=== PATIENT | male | born 1935 | race Caucasian/White ===

== ENCOUNTER → 2017-07-06 11:15 | Outpatient (CLI) | payer OTHER, SELFPAY ==
[2017-07-06 11:48] LABS: Add Manual Diff / Slide Review NO; Basophils Percent Auto 0.5 % (0-2); Eosinophils Percent Auto 1.5 % (2-4); Hematocrit 35.8 % (41-53); Lymphocytes Percent Auto 19.2 % (25-40); Mean Corpuscular HGB Conc 33.5 % (30-36); Mean Corpuscular Hemoglobin 30.1 PG (26-34); Mean Corpuscular Volume 89.8 fL (80-100); Monocytes Percent Auto 6.9 % (3-14); Neutrophils Absolute Auto 4800 /uL (3000-5900); Neutrophils Percent Auto 71.9 % (50-75); Platelet Count 203 X10^3/uL (150-400); Red Blood Cell Count 3.98 X10^6/uL (4.5-5.9); White Blood Cell Count 6.7 X10^3/uL (4.5-11.0)
[2017-07-06 12:01] LABS: Alanine Aminotransferase 23 IU/L (21-72); Albumin 3.9 g/dL (3.5-5.0); Albumin Globulin Ratio 1.3 (1.0-2.8); Alkaline Phosphatase 83 U/L (38-126); Aspartate Aminotransferase 28 IU/L (17-59); BUN Creatinine Ratio 22.5 (6-22); Bilirubin Total 0.8 mg/dL (0.2-1.3); Calcium 8.7 mg/dL (8.4-10.2); Estimated Glomerular Filt Rate > 60.0 mL/min (>60); Glucose 116 mg/dL (80-110); HEMOLYSIS 29 (0-50); Potassium 4.2 mmol/L (3.4-5.1); Sodium 142 mmol/L (137-145); Total Protein 6.9 g/dL (6.3-8.2)
[2017-07-06 12:49] LABS: Carcinoembryonic Antigen 8.4 ng/mL (0.1-3.0)
== END ==
PROVIDERS: PCP Internal Medicine; Visit Provider Nurse Practitioner Gerontology
DX: C7A.098 Malignant carcinoid tumors of other sites (principal)
CPT/HCPCS: 36415; 80053; 82378; 85025

== ENCOUNTER → 2017-08-06 12:00 | Outpatient (CLI) | payer OTHER, SELFPAY ==
[2017-08-11 16:02] LABS: Chromogranin A, Serum 173 ng/mL (25-140)
--- NOTE | 2017-08-19 13:28 | ONC.NAV ---
Description: T/C re: continuity of care planning Activity: Called pt to discuss our clinic's situation of not currently having an oncologist available in August that is credentialed by [facility]. REPAIR SUPERVISOR asked pt if he would like us to help transfer him to another of our NPO providers at [facility], go to [facility], or f/u with his own oncologist at [facility]. He stated that he just met with his oncologist 2-days ago, and that he doesn't need to see an oncologist here in August. He's ok with waiting until September to be scheduled with one of our new oncologists. In the meantime, he will plan to receive his injection here in August as planned.
== END ==
PROVIDERS: Family Provider Internal Medicine; PCP Internal Medicine; Visit Provider Nurse Practitioner Gerontology
DX: C7A.098 Malignant carcinoid tumors of other sites (principal)
CPT/HCPCS: 86316

== ENCOUNTER → 2017-10-22 09:37 | Outpatient (CLI) | payer OTHER, SELFPAY ==
--- NOTE | 2017-10-22 | DI.ECHO.S_ITS ---
[facility]---------+ [facility] +---------+ : : [address] : [place] : : : : [id number] : : : : Phone: [phone]+ Echocardiogram Report + + :Name: STAN HUMPHRIES Study Date: 10/22/2017 Height: 73 in : :[facility] Exam Location: [place] Weight: 145 lb : : Gender: Male BSA: 1.9 m2 : :: 1935 Age: 82 yrs BP: 118/78 mmHg: :Reason For Study: ABDOMINAL CARCINOID TUMOR : : Performed By: Kb Yan : :Referring: BLAYNE LEGER : + + Interpretation Summary Left ventricular systolic function is low normal with the ejection fraction visually estimated to be 50-55%. There are no focal wall motion abnormalities. The left ventricle is normal in size. Assessment of diastolic parameters indicates a relaxation abnormality of the left ventricle, consistent with normal filling pressures. The right ventricle is normal in size and function. Pulmonary artery pressures cannot be estimated because of the lack of a measurable TR jet velocity but the IVC suggests a low right atrial pressure of 3 mm Hg. Both atria are normal in size. There is mild mitral regurgitation but no other significant valvular heart disease. Procedure: A two-dimensional transthoracic echocardiogram with color flow and Doppler was performed. The study quality was technically difficult. There is no prior echocardiogram noted for this patient. The patient was in normal sinus rhythm during the exam. The patient had occasional PVCs during the exam. The patient had occasional PACs during the exam. Left Ventricle: The left ventricle is normal in size. There is normal left ventricular wall thickness. Left ventricular systolic function is low normal. The ejection fraction is estimated to be 50-55%. There are no focal wall motion abnormalities. Assessment of diastolic parameters indicates a relaxation abnormality of the left ventricle, consistent with normal filling pressures. Right Ventricle: The right ventricle is normal in size and function. Atria: Both atria are normal in size. The interatrial septum is intact with no evidence for an atrial septal defect. Mitral Valve: The mitral valve leaflets appear normal. There is no evidence of stenosis, fluttering, or prolapse. There is mild mitral regurgitation. Aortic Valve: The aortic valve is trileaflet. The aortic valve is slightly calcified. The aortic valve opens well. There is trace aortic regurgitation. Tricuspid Valve: The tricuspid valve is normal in structure and function. There is trace tricuspid regurgitation. Pulmonary artery pressures cannot be estimated because of the lack of a measurable TR jet velocity. Pulmonic Valve: The pulmonic valve is normal in structure and function. There is trace pulmonic regurgitation. There is no other significant valvular heart disease. Great Vessels: The aortic root is normal size. The ascending aorta could not be visualized. The pulmonary artery is normal size. The IVC is of normal diameter and collapses greater than 50% with a sniff. This suggests a low right atrial pressure of 3 mm Hg. Pericardium/ Pleura There is no pericardial effusion. There is no pleural effusion. MMode/2D Measurements & Calculations LVIDd: 4.2 cm Ao root diam: 3.5 cm LVIDs: 3.4 cm Ao Arch Diam (Prox Trans): 2.5 cm FS: 18.7 % EPSS: 0.35 cm IVSd: 0.60 cm LVPWd: 0.77 cm LV cameron. diameter/BSA (cm/m^2): 2.2 LV sys. diameter/BSA (cm/m^2): 1.8 LA dimension: 2.6 cm RA long axis: 4.4 cm LA A2 area: 16.1 cm2 RA area: 13.0 cm2 LA A4 area: 13.0 cm2 RA vol: 32.5 ml LA length (vol): 4.0 cm RA : 17.3 ml/m2 LA vol: 44.1 ml IVC diam: 1.9 cm LA vol index: 23.5 ml/m2 Doppler Measurements & Calculations Ao V2 max: 75.9 cm/sec LVOT Max Eric: 61.3 cm/sec Ao V2 mean: 55.2 cm/sec LV V1 max P.5 mmHg Ao max P.3 mmHg LV V1 VTI: 14.1 cm Ao mean P.3 mmHg sev ratio: 0.82 Ao V2 VTI: 17.2 cm MV E max eric: 49.3 cm/sec TR max eric: 199.0 cm/sec MV A max eric: 59.9 cm/sec TR max P.8 mmHg MV E/A: 0.82 PA V2 max: 60.5 cm/sec Med Peak E' Eric: 7.4 cm/sec PA V2 mean: 45.1 cm/sec E/E' med: 6.6 PA mean P.88 mmHg Lat Peak E' Eric: 11.7 cm/sec PA pr(Accel): 25.8 mmHg E/E' lat: 4.2 PA Accel Time: 0.13 sec E/e' average: 5.4 MV dec time: 0.23 sec Pulm A Revs Eric: 23.2 cm/sec Reading Physician:JOSÉ ANTONIO
== END ==
PROVIDERS: Family Provider Internal Medicine; PCP Internal Medicine; Visit Provider Nurse Practitioner Gerontology
DX: I34.0 Nonrheumatic mitral (valve) insufficiency (principal); C7A.098 Malignant carcinoid tumors of other sites
CPT/HCPCS: 93306

== ENCOUNTER → 2018-01-11 10:00 | Outpatient (CLI) | payer OTHER, SELFPAY | PROVIDERS: Family Provider Internal Medicine; PCP Internal Medicine; Visit Provider Internal Medicine | DX: M85.851 Other specified disorders of bone density and structure, right thigh (principal); E46 Unspecified protein-calorie malnutrition; Z82.62 Family history of osteoporosis | CPT/HCPCS: 77080 ==

== ENCOUNTER → 2019-02-08 13:12 | Outpatient (CLI) | payer OTHER, SELFPAY ==
[2019-02-08 13:47] LABS: Add Manual Diff / Slide Review NO; Basophils Absolute Auto 0 /uL (0-100); Basophils Percent Auto 0.6 % (0-2); Eosinophils Absolute Auto 200 /uL (0-450); Eosinophils Percent Auto 3.4 % (2-4); Hematocrit 36.1 % (41-53); Hemoglobin 12.3 g/dL (13.5-17.5); Lymphocytes Absolute Auto 1500 /uL (1100-4500); Lymphocytes Percent Auto 20.9 % (25-40); Mean Corpuscular HGB Conc 34.1 % (30-36); Mean Corpuscular Hemoglobin 30.5 PG (26-34); Mean Corpuscular Volume 89.4 fL (80-100); Monocytes Absolute Auto 500 /uL (0-900); Monocytes Percent Auto 6.5 % (3-14); Neutrophils Absolute Auto 4800 /uL (1500-7000); Neutrophils Percent Auto 68.6 % (50-75); Platelet Count 262 X10^3/uL (150-400); Red Blood Cell Count 4.04 X10^6/uL (4.5-5.9); Red Cell Distribution Width 13.4 % (11.6-14.8)
[2019-02-08 14:01] LABS: Alanine Aminotransferase 27 IU/L (<50); Albumin 4.3 g/dL (3.5-5.0); Albumin Globulin Ratio 1.4 (1.0-2.8); Alkaline Phosphatase 86 U/L (38-126); Aspartate Aminotransferase 38 IU/L (17-59); BUN Creatinine Ratio 18.5 (6-22); Bilirubin Total 0.7 mg/dL (0.2-1.3); Blood Urea Nitrogen 24 mg/dL (9-20); Calcium 9.2 mg/dL (8.4-10.2); Carbon Dioxide 28 mmol/L (22-32); Chloride 102 mmol/L (98-107); Estimated Glomerular Filt Rate 52.9 mL/min (>60); Glucose 89 mg/dL (80-110); HEMOLYSIS < 15 (0-50); Potassium 4.8 mmol/L (3.4-5.1); Sodium 139 mmol/L (137-145); Total Protein 7.3 g/dL (6.3-8.2)
[2019-02-08 14:32] LABS: Carcinoembryonic Antigen 6.4 ng/mL (0.1-3.0)
[2019-02-11 16:05] LABS: Cancer (Carbohydrate) Ag 19-9 18 U/mL (< 34)
[2019-02-11 16:34] LABS: Chromogranin A, Serum 170 ng/mL (25-140)
== END ==
PROVIDERS: PCP Internal Medicine
DX: C7A.098 Malignant carcinoid tumors of other sites (principal)
CPT/HCPCS: 36415; 80053; 82378; 85025; 86301; 86316

== ENCOUNTER → 2019-03-08 13:04 | Outpatient (CLI) | payer OTHER, SELFPAY ==
[2019-03-08 13:57] LABS: Add Manual Diff / Slide Review NO; Basophils Absolute Auto 0 /uL (0-100); Basophils Percent Auto 0.5 % (0-2); Eosinophils Absolute Auto 200 /uL (0-450); Eosinophils Percent Auto 2.7 % (2-4); Hematocrit 39.9 % (41-53); Hemoglobin 13.4 g/dL (13.5-17.5); Lymphocytes Absolute Auto 1600 /uL (1100-4500); Lymphocytes Percent Auto 19.6 % (25-40); Mean Corpuscular HGB Conc 33.6 % (30-36); Mean Corpuscular Hemoglobin 30.3 PG (26-34); Mean Corpuscular Volume 90.1 fL (80-100); Monocytes Absolute Auto 400 /uL (0-900); Monocytes Percent Auto 5.1 % (3-14); Neutrophils Absolute Auto 5900 /uL (1500-7000); Neutrophils Percent Auto 72.1 % (50-75); Platelet Count 244 X10^3/uL (150-400); Red Blood Cell Count 4.43 X10^6/uL (4.5-5.9); Red Cell Distribution Width 13.6 % (11.6-14.8); White Blood Cell Count 8.2 X10^3/uL (4.5-11.0)
[2019-03-08 13:58] LABS: Alanine Aminotransferase 33 IU/L (<50); Albumin 4.8 g/dL (3.5-5.0); Albumin Globulin Ratio 1.5 (1.0-2.8); Alkaline Phosphatase 92 U/L (38-126); Aspartate Aminotransferase 41 IU/L (17-59); BUN Creatinine Ratio 18.3 (6-22); Bilirubin Total 0.7 mg/dL (0.2-1.3); Blood Urea Nitrogen 22 mg/dL (9-20); Calcium 9.6 mg/dL (8.4-10.2); Carbon Dioxide 28 mmol/L (22-32); Chloride 102 mmol/L (98-107); Globulin 3.2 g/dL (1.7-4.1); Glucose 90 mg/dL (80-110); HEMOLYSIS < 15 (0-50); Potassium 4.6 mmol/L (3.4-5.1); Sodium 140 mmol/L (137-145)
[2019-03-08 14:28] LABS: Carcinoembryonic Antigen 7.1 ng/mL (0.1-3.0)
[2019-03-10 17:07] LABS: Cancer (Carbohydrate) Ag 19-9 19 U/mL (< 34)
[2019-03-11 13:59] LABS: Chromogranin A, Serum 162 ng/mL (25-140)
== END ==
PROVIDERS: PCP Internal Medicine
DX: C7A.098 Malignant carcinoid tumors of other sites (principal)
CPT/HCPCS: 36415; 80053; 82378; 85025; 86301; 86316

== ENCOUNTER → 2019-04-06 12:54 | Outpatient (CLI) | payer OTHER, SELFPAY ==
[2019-04-06 13:19] LABS: Add Manual Diff / Slide Review NO; Basophils Absolute Auto 0 /uL (0-100); Basophils Percent Auto 0.6 % (0-2); Eosinophils Absolute Auto 100 /uL (0-450); Eosinophils Percent Auto 1.8 % (2-4); Hematocrit 36.8 % (41-53); Hemoglobin 12.4 g/dL (13.5-17.5); Lymphocytes Absolute Auto 1500 /uL (1100-4500); Lymphocytes Percent Auto 21.5 % (25-40); Mean Corpuscular HGB Conc 33.7 % (30-36); Mean Corpuscular Hemoglobin 30.4 PG (26-34); Mean Corpuscular Volume 90.1 fL (80-100); Monocytes Absolute Auto 300 /uL (0-900); Monocytes Percent Auto 4.9 % (3-14); Neutrophils Absolute Auto 4900 /uL (1500-7000); Neutrophils Percent Auto 71.2 % (50-75); Platelet Count 308 X10^3/uL (150-400); Red Blood Cell Count 4.09 X10^6/uL (4.5-5.9); Red Cell Distribution Width 13.9 % (11.6-14.8); White Blood Cell Count 6.9 X10^3/uL (4.5-11.0)
[2019-04-06 13:31] LABS: HEMOLYSIS < 15 (0-50)
[2019-04-06 13:39] LABS: Alanine Aminotransferase 21 IU/L (<50); Albumin 4.2 g/dL (3.5-5.0); Albumin Globulin Ratio 1.3 (1.0-2.8); Alkaline Phosphatase 79 U/L (38-126); Aspartate Aminotransferase 32 IU/L (17-59); BUN Creatinine Ratio 23.6 (6-22); Bilirubin Total 0.4 mg/dL (0.2-1.3); Blood Urea Nitrogen 26 mg/dL (9-20); Calcium 9.1 mg/dL (8.4-10.2); Carbon Dioxide 27 mmol/L (22-32); Chloride 105 mmol/L (98-107); Estimated Glomerular Filt Rate > 60.0 mL/min (>60); Globulin 3.3 g/dL (1.7-4.1); Glucose 108 mg/dL (80-110); Potassium 4.4 mmol/L (3.4-5.1); Sodium 142 mmol/L (137-145); Total Protein 7.5 g/dL (6.3-8.2)
[2019-04-06 16:34] LABS: Carcinoembryonic Antigen 4.5 ng/mL (0.1-3.0)
[2019-04-08 15:17] LABS: Cancer (Carbohydrate) Ag 19-9 21 U/mL (< 34)
[2019-04-11 17:24] LABS: Chromogranin A, Serum 124 ng/mL (25-140)
== END ==
PROVIDERS: PCP Internal Medicine; Referring Provider Internal Medicine Hematology & Oncology; Visit Provider Internal Medicine Hematology & Oncology
DX: C7A.098 Malignant carcinoid tumors of other sites (principal)
CPT/HCPCS: 36415; 80053; 82378; 85025; 86301; 86316

== ENCOUNTER → 2019-05-31 12:44 | Outpatient (CLI) | payer OTHER, SELFPAY ==
[2019-05-31 13:01] LABS: Add Manual Diff / Slide Review NO; Basophils Absolute Auto 0 /uL (0-100); Basophils Percent Auto 0.4 % (0-2); Eosinophils Absolute Auto 300 /uL (0-450); Hematocrit 39.4 % (41-53); Hemoglobin 13.5 g/dL (13.5-17.5); Lymphocytes Absolute Auto 1500 /uL (1100-4500); Lymphocytes Percent Auto 17.9 % (25-40); Mean Corpuscular HGB Conc 34.3 % (30-36); Mean Corpuscular Hemoglobin 30.9 PG (26-34); Mean Corpuscular Volume 90.2 fL (80-100); Monocytes Absolute Auto 600 /uL (0-900); Monocytes Percent Auto 7.1 % (3-14); Neutrophils Absolute Auto 5800 /uL (1500-7000); Neutrophils Percent Auto 70.6 % (50-75); Platelet Count 255 X10^3/uL (150-400); Red Blood Cell Count 4.36 X10^6/uL (4.5-5.9); Red Cell Distribution Width 13.8 % (11.6-14.8); White Blood Cell Count 8.2 X10^3/uL (4.5-11.0)
[2019-05-31 13:16] LABS: Alanine Aminotransferase 28 IU/L (<50); Albumin 4.5 g/dL (3.5-5.0); Albumin Globulin Ratio 1.3 (1.0-2.8); Alkaline Phosphatase 88 U/L (38-126); Aspartate Aminotransferase 42 IU/L (17-59); BUN Creatinine Ratio 18.3 (6-22); Bilirubin Total 0.6 mg/dL (0.2-1.3); Blood Urea Nitrogen 23 mg/dL (9-20); Calcium 9.7 mg/dL (8.4-10.2); Carbon Dioxide 29 mmol/L (22-32); Chloride 103 mmol/L (98-107); Estimated Glomerular Filt Rate 54.8 mL/min (>60); Globulin 3.5 g/dL (1.7-4.1); Glucose 77 mg/dL (80-110); HEMOLYSIS < 15 (0-50); Potassium 4.9 mmol/L (3.4-5.1); Sodium 139 mmol/L (137-145)
[2019-05-31 13:47] LABS: Carcinoembryonic Antigen 4.9 ng/mL (0.1-3.0)
[2019-06-01 07:17] LABS: Cancer (Carbohydrate) Ag 19-9 17 U/mL (0-35)
[2019-06-12 12:14] LABS: Result 194
== END ==
PROVIDERS: PCP Internal Medicine; Referring Provider Internal Medicine Hematology & Oncology; Visit Provider Internal Medicine Hematology & Oncology
DX: C7A.098 Malignant carcinoid tumors of other sites (principal)
CPT/HCPCS: 36415; 80053; 82378; 85025; 86301; 86316

== ENCOUNTER → 2019-06-29 12:16 | Outpatient (CLI) | payer OTHER, SELFPAY ==
[2019-06-29 12:36] LABS: Add Manual Diff / Slide Review NO; Basophils Absolute Auto 0 /uL (0-100); Basophils Percent Auto 0.4 % (0-2); Eosinophils Absolute Auto 200 /uL (0-450); Hematocrit 35.7 % (41-53); Hemoglobin 12.4 g/dL (13.5-17.5); Lymphocytes Absolute Auto 1500 /uL (1100-4500); Lymphocytes Percent Auto 20.7 % (25-40); Mean Corpuscular HGB Conc 34.7 % (30-36); Mean Corpuscular Hemoglobin 31.1 PG (26-34); Mean Corpuscular Volume 89.8 fL (80-100); Monocytes Absolute Auto 500 /uL (0-900); Monocytes Percent Auto 6.4 % (3-14); Neutrophils Absolute Auto 5000 /uL (1500-7000); Neutrophils Percent Auto 69.5 % (50-75); Platelet Count 251 X10^3/uL (150-400); Red Blood Cell Count 3.98 X10^6/uL (4.5-5.9); Red Cell Distribution Width 13.8 % (11.6-14.8); White Blood Cell Count 7.2 X10^3/uL (4.5-11.0)
[2019-06-29 12:48] LABS: Alanine Aminotransferase 25 IU/L (<50); Albumin 4.2 g/dL (3.5-5.0); Albumin Globulin Ratio 1.3 (1.0-2.8); Alkaline Phosphatase 78 U/L (38-126); Aspartate Aminotransferase 36 IU/L (17-59); BUN Creatinine Ratio 19.5 (6-22); Bilirubin Total 0.5 mg/dL (0.2-1.3); Blood Urea Nitrogen 24 mg/dL (9-20); Carbon Dioxide 26 mmol/L (22-32); Chloride 104 mmol/L (98-107); Estimated Glomerular Filt Rate 56.3 mL/min (>60); Globulin 3.3 g/dL (1.7-4.1); Glucose 72 mg/dL (80-110); HEMOLYSIS < 15 (0-50); Potassium 4.8 mmol/L (3.4-5.1); Sodium 139 mmol/L (137-145); Total Protein 7.5 g/dL (6.3-8.2)
[2019-06-29 13:18] LABS: Carcinoembryonic Antigen 4.5 ng/mL (0.1-3.0)
[2019-06-30 06:27] LABS: Cancer (Carbohydrate) Ag 19-9 16 U/mL (0-35)
[2019-07-03 13:48] LABS: Chromogranin A, Serum 108.9 ng/mL (0.0-101.8)
== END ==
PROVIDERS: PCP Internal Medicine; Referring Provider Internal Medicine Hematology & Oncology; Visit Provider Internal Medicine Hematology & Oncology
DX: C7A.098 Malignant carcinoid tumors of other sites (principal)
CPT/HCPCS: 36415; 80053; 82378; 85025; 86301; 86316

== ENCOUNTER → 2019-12-07 13:07 | Outpatient (CLI) | payer OTHER, SELFPAY ==
[2019-12-07 14:19] LABS: Add Manual Diff / Slide Review NO; Basophils Absolute Auto 0 /uL (0-100); Basophils Percent Auto 0.4 % (0-2); Eosinophils Absolute Auto 100 /uL (0-450); Eosinophils Percent Auto 1.9 % (2-4); Hematocrit 38.1 % (41-53); Hemoglobin 12.8 g/dL (13.5-17.5); Lymphocytes Absolute Auto 1400 /uL (1100-4500); Lymphocytes Percent Auto 18.9 % (25-40); Mean Corpuscular HGB Conc 33.6 % (30-36); Mean Corpuscular Hemoglobin 30.6 PG (26-34); Monocytes Absolute Auto 400 /uL (0-900); Monocytes Percent Auto 5.4 % (3-14); Neutrophils Absolute Auto 5500 /uL (1500-7000); Neutrophils Percent Auto 73.4 % (50-75); Platelet Count 236 X10^3/uL (150-400); Red Blood Cell Count 4.19 X10^6/uL (4.5-5.9); Red Cell Distribution Width 13.6 % (11.6-14.8); White Blood Cell Count 7.5 X10^3/uL (4.5-11.0)
[2019-12-07 14:32] LABS: Alanine Aminotransferase 30 IU/L (<50); Albumin 4.2 g/dL (3.5-5.0); Albumin Globulin Ratio 1.6 (1.0-2.8); Alkaline Phosphatase 98 U/L (38-126); Aspartate Aminotransferase 36 IU/L (17-59); BUN Creatinine Ratio 19.2 (6-22); Bilirubin Total 0.6 mg/dL (0.2-1.3); Blood Urea Nitrogen 23 mg/dL (9-20); Calcium 9.2 mg/dL (8.4-10.2); Carbon Dioxide 31 mmol/L (22-32); Chloride 104 mmol/L (98-107); Estimated Glomerular Filt Rate 57.8 mL/min (>60); Globulin 2.7 g/dL (1.7-4.1); Glucose 133 mg/dL (80-110); HEMOLYSIS < 15 (0-50); Sodium 138 mmol/L (137-145); Total Protein 6.9 g/dL (6.3-8.2)
[2019-12-07 14:33] LABS: Potassium 5.5 mmol/L (3.4-5.1)
== END ==
PROVIDERS: PCP Internal Medicine; Referring Provider Internal Medicine Hematology & Oncology; Visit Provider Internal Medicine Hematology & Oncology
DX: C7A.098 Malignant carcinoid tumors of other sites (principal)
CPT/HCPCS: 36415; 80053; 85025; 86316

== ENCOUNTER → 2020-01-03 13:14 | Outpatient (CLI) | payer OTHER, SELFPAY ==
[2020-01-03 13:56] LABS: Add Manual Diff / Slide Review NO; Basophils Absolute Auto 0 /uL (0-100); Basophils Percent Auto 0.6 % (0-2); Eosinophils Absolute Auto 100 /uL (0-450); Hematocrit 35.9 % (41-53); Hemoglobin 12.1 g/dL (13.5-17.5); Lymphocytes Absolute Auto 1600 /uL (1100-4500); Lymphocytes Percent Auto 21.9 % (25-40); Mean Corpuscular HGB Conc 33.7 % (30-36); Mean Corpuscular Hemoglobin 30.6 PG (26-34); Mean Corpuscular Volume 91.1 fL (80-100); Monocytes Absolute Auto 300 /uL (0-900); Monocytes Percent Auto 4.5 % (3-14); Neutrophils Absolute Auto 5200 /uL (1500-7000); Platelet Count 220 X10^3/uL (150-400); Red Blood Cell Count 3.94 X10^6/uL (4.5-5.9); Red Cell Distribution Width 13.8 % (11.6-14.8); White Blood Cell Count 7.3 X10^3/uL (4.5-11.0)
[2020-01-03 14:45] LABS: Alanine Aminotransferase 31 IU/L (<50); Albumin 4.1 g/dL (3.5-5.0); Albumin Globulin Ratio 1.4 (1.0-2.8); Alkaline Phosphatase 87 U/L (38-126); Aspartate Aminotransferase 39 IU/L (17-59); BUN Creatinine Ratio 19.2 (6-22); Bilirubin Total 0.6 mg/dL (0.2-1.3); Blood Urea Nitrogen 25 mg/dL (9-20); Calcium 8.9 mg/dL (8.4-10.2); Carbon Dioxide 29 mmol/L (22-32); Chloride 105 mmol/L (98-107); Estimated Glomerular Filt Rate 52.7 mL/min (>60); Globulin 2.9 g/dL (1.7-4.1); Glucose 116 mg/dL (80-110); HEMOLYSIS < 15 (0-50); Potassium 4.8 mmol/L (3.4-5.1); Sodium 137 mmol/L (137-145)
[2020-01-05 12:36] LABS: Chromogranin A, Serum 109.9 ng/mL (0.0-101.8)
== END ==
PROVIDERS: PCP Internal Medicine; Referring Provider Internal Medicine Hematology & Oncology; Visit Provider Internal Medicine Hematology & Oncology
DX: C7A.098 Malignant carcinoid tumors of other sites (principal)
CPT/HCPCS: 36415; 80053; 85025; 86316

== ENCOUNTER → 2020-07-18 11:50 | Outpatient (CLI) | payer OTHER, SELFPAY ==
--- NOTE | 2020-07-18 11:53 | DI.CT.S_ITS ---
PROCEDURE: CT CHEST W CON INDICATIONS: Malignant Carcinoid Tumor TECHNIQUE: After the administration of intravenous contrast, 5 mm thick sections acquired from the pulmonary apices to the posterior costophrenic angles. 1 mm axial lung, 5 mm thick coronal and sagittal reformats and 7 mm axial MIP were acquired. For radiation dose reduction, the following was used: automated exposure control, adjustment of mA and/or kV according to patient size. COMPARISON: [facility], CT, CHEST/ABD/PEL WITH CONTRAST, 11/02/2016, 12:03. Outside Facility, RG, CT PET SKULL BASE TO MID THIGH, 02/01/2020, 8:36. FINDINGS: Image quality: Excellent. Lungs and pleura: No acute air space opacities. No pleural effusions or pneumothorax. Central and peripheral airways are patent and normal in caliber. Mediastinum: Heart size is normal. No pericardial effusion. No mediastinal or hilar adenopathy by size criteria. Thoracic aorta and central pulmonary arteries are normal in size. Esophagus is normal in caliber. No hiatal hernia. Bones and chest wall: No suspicious bony lesions. No vertebral body compression fractures. No axillary or supraclavicular adenopathy by size criteria. Thyroid gland contains several 1.0-1.5 cm nodular hypodensities that do not significantly enlarged the right thyroid lobe. Abdomen: Visualized upper abdominal solid organs appear normal. Upper abdominal bowel loops are normal in caliber. IMPRESSION: No evidence for presence of metastatic disease related to carcinoid tumor from the abdomen extending into the chest. The most recent PET-CT scanning, from [facility], dated 02/01/20 was reviewed. That study also did not show evidence of metastatic disease within the chest. There are 3 separate nodules within the right thyroid lobe ranging in size from 1.0 to 1.5 cm. The exact margins of the structures would be better assessed with dedicated thyroid ultrasound scanning if clinically warranted. Similar nodules within the right thyroid lobe were also present on prior CT scanning 11/02/16. Dictated by: Rod Montes M.D. on 07/18/2020 at 15:12 Approved by: Rod Montes M.D. on 07/18/2020 at 15:35
--- NOTE | 2020-07-18 11:53 | DI.CT.S_ITS ---
PROCEDURE: CT ABDOMEN WWO PELVIS W INDICATIONS: hepatic protocol. Metestatic neuroendocrine tumor TECHNIQUE: After the administration of oral contrast, 5 mm thick sections acquired from the diaphragms to the iliac crests. After the administration of intravenous contrast, 5 mm thick sections acquired from the diaphragms to the symphysis. 5 mm thick coronal and sagittal reformats were acquired. For radiation dose reduction, the following was used: automated exposure control, adjustment of mA and/or kV according to patient size. COMPARISON: Outside Facility, RG, CT PET SKULL BASE TO MID THIGH, 02/01/2020, 8:36. FINDINGS: Image quality: Excellent. ABDOMEN: Lung bases: Lung bases are clear. Heart size is normal. Solid organs: Liver is normal in size and enhancement. The liver appears fatty infiltrated. No focal liver lesion Gallbladder is not seen . Biliary system is non-dilated. Pancreas enhances normally. Spleen is normal in size and enhancement. No adrenal nodules. Both kidneys are normal in size. No hydronephrosis or nephrolithiasis. Bowel and peritoneum: Stomach, small and large bowel loops are normal in caliber and wall thickness. No free fluid or air. Again noted is a ovoid mass lesion within the mesenteric root closely approximated to a set of enteric staple lines at the right upper quadrant. The mass is centered on series 7, image 35 and is hyperenhancing. It has not enlarged from the PET-CT scanning 02/01/20 and currently is measured at 2 point 3 cm AP and 3.2 cm transverse. This is associated with the staple line seen on series 7, image 28.m Nodes and vessels: No retroperitoneal or mesenteric adenopathy by size criteria. Aorta and inferior vena are normal in caliber. Miscellaneous: No ventral hernias. PELVIS: Genitourinary: Bladder wall thickness is normal. Miscellaneous: No inguinal hernias or adenopathy. Bones: No suspicious bony lesions. No vertebral body compression fractures. IMPRESSION: Stable appearance of a mesenteric mass associated with a adjacent enteric staple line at the right upper quadrant, which has not changed from size during PET-CT scanning in January of 2020. No new lesion has developed. Fatty infiltration within the liver. 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 Dictated by: Rod Montes M.D. on 07/19/2020 at 8:58 Approved by: Rod Montes M.D. on 07/19/2020 at 9:40
[2020-07-18 12:04] LABS: Add Manual Diff / Slide Review NO; Basophils Absolute Auto 0 /uL (0-100); Basophils Percent Auto 0.4 % (0-2); Eosinophils Absolute Auto 200 /uL (0-450); Eosinophils Percent Auto 2.5 % (2-4); Hematocrit 37.5 % (41-53); Hemoglobin 12.6 g/dL (13.5-17.5); Lymphocytes Absolute Auto 1900 /uL (1100-4500); Lymphocytes Percent Auto 23.6 % (25-40); Mean Corpuscular HGB Conc 33.7 % (30-36); Mean Corpuscular Hemoglobin 31.1 PG (26-34); Mean Corpuscular Volume 92.4 fL (80-100); Monocytes Absolute Auto 600 /uL (0-900); Monocytes Percent Auto 7.5 % (3-14); Neutrophils Absolute Auto 5200 /uL (1500-7000); Platelet Count 208 X10^3/uL (150-400); Red Blood Cell Count 4.06 X10^6/uL (4.5-5.9); Red Cell Distribution Width 13.6 % (11.6-14.8); White Blood Cell Count 7.9 X10^3/uL (4.5-11.0)
[2020-07-18 12:22] LABS: Alanine Aminotransferase 33 IU/L (<50); Albumin 4.2 g/dL (3.5-5.0); Albumin Globulin Ratio 1.4 (1.0-2.8); Alkaline Phosphatase 96 U/L (38-126); Aspartate Aminotransferase 41 IU/L (17-59); BUN Creatinine Ratio 18.5 (6-22); Bilirubin Total 0.9 mg/dL (0.2-1.3); Blood Urea Nitrogen 22 mg/dL (9-20); Calcium 9.5 mg/dL (8.4-10.2); Carbon Dioxide 26 mmol/L (22-32); Chloride 103 mmol/L (98-107); Estimated Glomerular Filt Rate 58.4 mL/min (>60); Glucose 100 mg/dL (80-110); HEMOLYSIS < 15 (0-50); Potassium 4.9 mmol/L (3.4-5.1); Sodium 137 mmol/L (137-145); Total Protein 7.2 g/dL (6.3-8.2)
[2020-07-24 14:58] LABS: Chromogranin A, Serum 134.3 ng/mL (0.0-101.8)
== END ==
PROVIDERS: PCP Internal Medicine; Referring Provider Internal Medicine Hematology & Oncology; Visit Provider Internal Medicine Hematology & Oncology
DX: C7A.098 Malignant carcinoid tumors of other sites (principal)
CPT/HCPCS: 36415; 71260; 74178; 80053; 85025; 86316; Q9967

== ENCOUNTER → 2021-03-13 13:33 | Outpatient (CLI) | payer OTHER, SELFPAY ==
--- NOTE | 2021-03-13 13:34 | DI.CT.S_ITS ---
PROCEDURE: CT ABDOMEN WWO PELVIS W INDICATIONS: neuroendocrine tumor TECHNIQUE: After the administration of oral contrast, 5 mm thick sections acquired from the diaphragms to the iliac crests. After the administration of intravenous contrast, 5 mm thick sections acquired from the diaphragms to the symphysis. 5 mm thick coronal and sagittal reformats were acquired. For radiation dose reduction, the following was used: automated exposure control, adjustment of mA and/or kV according to patient size. COMPARISON: [facility], CT, CT ABDOMEN WWO PELVIS W, 07/18/2020, 12:58. FINDINGS: Image quality: Excellent. ABDOMEN: Lung bases: Lung bases are clear. Heart size is normal. Solid organs: Liver is normal in size and enhancement. Gallbladder is surgically absent . Biliary system is non-dilated. Biliary air is noted, as before. Pancreas enhances normally. Spleen is normal in size and enhancement. No adrenal nodules. Both kidneys are normal in size. No hydronephrosis or nephrolithiasis. Bowel and peritoneum: Extensive sigmoid diverticulosis without evidence of diverticulitis. No free fluid or air. Stable size of enhancing mass in the mesenteric root closely approximated to a right upper quadrant staple line. On previous image 36/10 it measured 2.9 x 3.2 cm. On current image 42/5 it measures 2.7 x 3.4 cm. No new or increasing masses are noted. Nodes and vessels: No retroperitoneal or mesenteric adenopathy by size criteria. Aorta and inferior vena are normal in caliber. Small pancreatic uncinate process region varicosities, unchanged. Miscellaneous: No ventral hernias. PELVIS: Genitourinary: Bladder wall thickness is normal. At least moderately enlarged prostate. Miscellaneous: No inguinal hernias or adenopathy. Bones: Lumbar degenerative change. No lytic or blastic bony lesions. No compression fractures. IMPRESSION: 1. 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 2. Diffuse hepatic steatosis. 3. No evidence of progression of malignancy in the abdomen and pelvis. Dictated by: Star Culp M.D. on 03/14/2021 at 8:06 Approved by: Star Culp M.D. on 03/14/2021 at 8:15
== END ==
PROVIDERS: PCP Internal Medicine; Referring Provider Internal Medicine Hematology & Oncology; Visit Provider Internal Medicine Hematology & Oncology
DX: C7A.098 Malignant carcinoid tumors of other sites (principal); K57.30 Diverticulosis of large intestine without perforation or abscess without bleeding; K76.0 Fatty (change of) liver, not elsewhere classified; Z90.49 Acquired absence of other specified parts of digestive tract
CPT/HCPCS: 74178; Q9967

== ENCOUNTER → 2022-01-09 10:07 | Outpatient (CLI) | payer OTHER, SELFPAY ==
--- NOTE | 2022-01-09 10:08 | DI.CT.S_ITS ---
PROCEDURE: CT CHEST ABD PEL W CON INDICATIONS: carcinoid tumor TECHNIQUE: After the administration of oral and intravenous contrast, axial sections acquired from the supraclavicular neck to the pubic symphysis. Coronal and sagittal reformats were performed. For radiation dose reduction, the following was used: automated exposure control, adjustment of mA and/or kV according to patient size. COMPARISON: [facility], CT, CT CHEST W CON, 07/18/2020, 12:58. [facility], CT, CT ABDOMEN WWO PELVIS W, 03/13/2021, 14:57. [facility], CT, CHEST/ABD/PEL WITH CONTRAST, 11/02/2016, 12:03. FINDINGS: Image quality: Excellent. CHEST: Lower Neck: No enlarged lymph nodes. Thyroid: Unchanged from prior study, mildly complex right thyroid cyst. Axillae: No enlarged lymph nodes. Chest Wall: Unremarkable. Lungs and Airways: No consolidation or suspicious nodules. Pleura: No pneumothorax or pleural effusions. Heart: Heart size is normal. No pericardial effusion. Thoracic Vessels: The aorta and pulmonary arteries demonstrate normal size. Mediastinum and Padmini: No enlarged lymph nodes. Esophagus: No wall thickening. No hiatal hernia. ABDOMEN: Liver: Unremarkable. Gallbladder: The gallbladder is not seen and is presumed to be surgically absent. However, no metallic surgical clips are seen at the gallbladder fossa. Mild pneumobilia within the left hepatic lobe. Biliary ducts: Unremarkable. Pancreas: Unremarkable. Spleen: Unremarkable. Adrenal Glands: Unremarkable. Kidneys and Ureters: Unremarkable. Stomach and Bowel: Stomach, small bowel loops, and colon are unremarkable except for what appears to be an enteric staple line at the hepatic flexure of the colon. Again noted is a stable appearing enhancing solid mass lesionm measuring up to 2.7 cm AP and approximately 3 cm transverse at the root of the small bowel mesentery, best seen on series 2, image 82. Peritoneum: No abnormal intraperitoneal fluid. No free air. Ventral Wall: No hernia. Abdominal Nodes: No retroperitoneal or mesenteric adenopathy by size criteria. Vessels: Aorta and inferior vena cava are normal in size. PELVIS: Pelvic Organs: Unremarkable. Bladder: Unremarkable. Pelvic Nodes: No enlarged lymph nodes. Miscellaneous: No inguinal hernias are seen. Bones: Unremarkable. IMPRESSION: 1. Postsurgical staple line at the hepatic flexure of the colon. No recurrent mass lesion in this area. 2. Mesenteric root upper abdominal mass is stable over time considering differences in scan level, measuring approximately 2.7 x 3.0 cm centered just to the right of midline, previously identified. No new enhancing mass is identified. 3. No sign of distant metastatic disease. Dictated by: Rod Montes M.D. on 01/09/2022 at 15:38 Approved by: Rod Montes M.D. on 01/09/2022 at 15:50
== END ==
PROVIDERS: PCP Internal Medicine; Referring Provider Internal Medicine Hematology & Oncology; Visit Provider Internal Medicine Hematology & Oncology
DX: C7A.098 Malignant carcinoid tumors of other sites (principal)
CPT/HCPCS: 71260; 74177; Q9967

== ENCOUNTER 2022-02-18 16:43 | Inpatient (IN) | payer OTHER, SELFPAY ==
[2022-02-18] VITALS (8 sets, daily range): BP systolic 94–112; BP diastolic 51–65; PULSE 79–106; RESP 18–27; TEMP 37.1; O2SAT 92–93; BMI 22.4
--- NOTE | 2022-02-18 17:05 | DI.RAD.S_ITS ---
PROCEDURE: XR CHEST 1V INDICATIONS: suspected sepsis TECHNIQUE: One view of the chest was acquired. COMPARISON: [facility], , CHEST 2 VIEW, 11/26/2015, 9:39. FINDINGS: Surgical changes and devices: None. Lungs and pleura: Mild diffuse reticulonodular pulmonary opacity. No pleural effusions or pneumothorax. Mediastinum: Mediastinal contours appear normal. Heart size is normal. Bones and chest wall: No suspicious bony lesions. Overlying soft tissues appear unremarkable. IMPRESSION: Mild atypical pneumonia. Dictated by: Liz Zelaya M.D. on 02/18/2022 at 18:01 Approved by: Liz eZlaya M.D. on 02/18/2022 at 18:02
[2022-02-18 17:32] LABS: Add Manual Diff / Slide Review NO; Basophils Absolute Auto 0 /uL (0-100); Basophils Percent Auto 0.1 % (0-2); Eosinophils Absolute Auto 0 /uL (0-450); Hematocrit 40.9 % (41-53); Hemoglobin 13.8 g/dL (13.5-17.5); Lymphocytes Absolute Auto 500 /uL (1100-4500); Lymphocytes Percent Auto 2.9 % (25-40); Mean Corpuscular HGB Conc 33.8 % (30-36); Mean Corpuscular Hemoglobin 31.6 PG (26-34); Mean Corpuscular Volume 93.6 fL (80-100); Monocytes Absolute Auto 300 /uL (0-900); Neutrophils Absolute Auto 16000 /uL (1500-7000); Platelet Count 172 X10^3/uL (150-400); Red Blood Cell Count 4.37 X10^6/uL (4.5-5.9); Red Cell Distribution Width 14.5 % (11.6-14.8); White Blood Cell Count 16.8 X10^3/uL (4.5-11.0)
[2022-02-18 17:33] LABS: INR 1.3 (0.9-1.3); Prothrombin Time 15.3 SECONDS (10.1-12.7)
[2022-02-18 17:35] LABS: PTT Partial Thromboplastin Tim 32 SECONDS (26-36)
[2022-02-18 17:37] LABS: Alanine Aminotransferase 41 IU/L (<50); Albumin 4.8 g/dL (3.5-5.0); Albumin Globulin Ratio 1.3 (1.0-2.8); Alkaline Phosphatase 89 U/L (38-126); Aspartate Aminotransferase 64 IU/L (17-59); BUN Creatinine Ratio 16.2 (6-22); Bilirubin Total 1.2 mg/dL (0.2-1.3); Blood Urea Nitrogen 28 mg/dL (9-20); Calcium 8.8 mg/dL (8.4-10.2); Carbon Dioxide 21 mmol/L (22-32); Chloride 96 mmol/L (98-107); Estimated Glomerular Filt Rate 38 mL/min (>60); Globulin 3.8 g/dL (1.7-4.1); Glucose 85 mg/dL (80-110); HEMOLYSIS < 15 (0-50); Lactate (Lactic Acid) 2.4 mmol/L (0.7-2.1); Lipase 46 U/L (23-300); Potassium 3.9 mmol/L (3.4-5.1); Sodium 134 mmol/L (137-145); Total Protein 8.6 g/dL (6.3-8.2)
[2022-02-18 17:50] LABS: Influenza A - CEPHEID Flu A POSITIVE (NEGATIVE); Influenza B - CEPHEID Flu B NEGATIVE (NEGATIVE); Respiratory Syncytial Virus Negative (Negative)
[2022-02-18 17:52] LABS: COVID-19 CEPHEID 4-PLEX PCR Negative (Negative)
[2022-02-18 17:54] LABS: Procalcitonin 4.46 ng/mL (<0.5)
[2022-02-18 18:20] LABS: Appearance Urine UA CLEAR; Bilirubin Urine UA NEGATIVE (NEGATIVE); Color Urine UA YELLOW; Glucose Urine UA NEGATIVE (Negative); Ketones Urine UA NEGATIVE (NEGATIVE); Leukocyte Esterase Urine UA NEGATIVE (NEGATIVE); Nitrite Urine UA NEGATIVE (Negative); Occult Blood Urine UA 2+ (Negative); Protein Urine UA 2+ (Negative); Specific Gravity Urine UA 1.025 (1.000-1.035); Urobilinogen Urine UA 0.2 E.U./dL (0.2)
[2022-02-18 18:33] LABS: RBC Urine None Seen (0-5/HPF); WBC Urine 0-1/HPF (0-5/HPF)
[2022-02-18 18:34] LABS: Amorphous Sediment Urine 2+; Bacteria Urine None Seen; Culture Indicated Urine Cult Not Indicated; Granular Casts Urine 0-1/LPF
[2022-02-18 19:17] LABS: Reflexed Lactate in 2 Hours Y
--- NOTE | 2022-02-18 19:55 | ED.GENADULT ---
HPI - General Adult General Chief complaint: Weakness Stated complaint: R/O urosepsis Time Seen by Provider: 02/18/22 19:38 Source: patient Mode of arrival: Wheelchair Limitations: no limitations History of Present Illness HPI narrative: Patient is an 86-year-old male. 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 Is here for evaluation of what he potentially thinks is a urinary tract infection. He does have urinary frequency and urgency and an episode of incontinence. He also states that he had URI like symptoms that started a couple days ago. This morning he states he became so fatigued that he could not stand up. Things have improved somewhat since this morning but still does not feel back to normal. Related Data Home Medications Medication Instructions Recorded Confirmed octreotide,microspheres IM MONTHLY 01/12/22 02/18/22 [Sandostatin LAR Depot] Allergies Allergy/AdvReac Type Severity Reaction Status Date / Time No Known Drug Allergies Allergy Verified 02/18/22 16:53 Review of Systems Review of Systems ROS Unobtainable: All systems reviewed & are unremarkable except as noted in HPI and below Patient History Medical History Asthma, mild intermittent Coronary artery calcification seen on CAT scan Do not resuscitate Mixed hyperlipidemia Polyneuropathy, unspecified Primary osteoarthritis involving multiple joints Surgical History (Updated 02/18/22 @ 22:27 by [facility] History of right hemicolectomy Social History Smoking Status: Former smoker Smoking Status: Former smoker Substance Use Type: does not use Exam Initial Vital Signs Initial Vital Signs: Vital Signs Temperature 98.8 F 02/18/22 16:48 Pulse Rate 106 H 02/18/22 16:48 Respiratory Rate 18 02/18/22 16:48 Blood Pressure 112/57 L 02/18/22 16:48 Pulse Oximetry 92 02/18/22 16:48 Oxygen Delivery Method 02/18/22 16:48 Const General: cooperative, comfortable and No ill appearing [facility] Head: normal to inspection and normocephalic Resp Effort & Inspection: not labored, no respiratory distress and tachypneic Auscultation: clear to auscultation bilaterally Cardio Rate: regular rate Rhythm: regular rhythm GI Inspection: normal to inspection Neuro General: patient alert, patient awake, patient oriented x3 and moves all extremities Extrem General: normal to inspection, capillary refill normal and No edema Psych Appearance: grossly normal and well kempt Scores GCS Aj coma scale eye opening: Spontaneous Aj coma scale verbal response: Orientated Aj coma scale motor response: Obey commands Aj coma scale total score: 15 Course Orders Ordered: ED Orders 02/18/22 19:36 Blood Culture Stat Troponin & CK Cardiac Panel Stat Acetaminophen (Acetaminophen 325 Mg Tablet) 650 mg PO Q6H PRN PRN Reason: Fever/Mild Pain (1-3) Albuterol/Ipratropium (Albuterol/Ipratropium 3 Ml Ampul) 3 ml INH RTQ4HR PRN PRN Reason: Shortness Of Breath Calcium Carbonate (Calcium Carbonate 500 Mg Tab) 1,000 mg PO Q4HR PRN PRN Reason: Dyspepsia Enoxaparin Sodium (Enoxaparin 30 Mg/0.3 Ml Syringe) 30 mg SUBCUT DAILY [facility] Sodium Chloride (Normal Saline 0.9%) 1,000 mls @ 80 mls/hr IV CONT [facility] Last Admin: 02/19/22 00:18 Dose: 80 mls/hr Documented By: JC Ceftriaxone Sodium 1,000 mg/ (Sodium Chloride) 100 mls @ 200 mls/hr IV Q24H [facility] Stop: 02/24/22 08:59 Azithromycin 500 mg/ Dextrose 250 mls @ 250 mls/hr IV Q24H [facility] Stop: 02/22/22 09:59 Naloxone HCl (Naloxone 0.4 Mg/Ml Vial) 0.2 mg IV Q2MIN PRN PRN Reason: Opiate Reversal Ondansetron HCl (Ondansetron 4 Mg/2 Ml Inj) 4 mg IV NOW PRN PRN Reason: Nausea And Vomiting Ondansetron HCl (Ondansetron 4 Mg Odt) 4 mg SL NOW PRN PRN Reason: Nausea And Vomiting Ondansetron HCl (Ondansetron 4 Mg/2 Ml Inj) 4 mg IV Q4HR PRN PRN Reason: Nausea And Vomiting Oseltamivir Phosphate (Oseltamivir 75 Mg Capsule) 75 mg PO BID [facility] Prednisone (Prednisone 20 Mg Tablet) 50 mg PO DAILY [facility] Stop: 02/26/22 08:59 Discontinued Medications Acetaminophen (Acetaminophen 325 Mg Tablet) 650 mg PO NOW ONE Stop: 02/18/22 20:29 Last Admin: 02/18/22 20:32 Dose: 650 mg Documented By: JC Sodium Chloride (Normal Saline 0.9%) 1,000 mls @ 1,000 mls/hr IV BOLUS ONE Stop: 02/18/22 18:04 Last Infusion: 02/18/22 22:25 Dose: 0 mls/hr Documented By: Admin: 02/18/22 20:05 Dose: 1,000 mls/hr Documented By: JC Azithromycin 500 mg/ Dextrose 250 mls @ 250 mls/hr IV NOW ONE Stop: 02/18/22 20:01 Last Infusion: 02/18/22 22:25 Dose: 0 mls/hr Documented By: Admin: 02/18/22 20:59 Dose: 250 mls/hr Documented By: MARIA C Ceftriaxone Sodium 1,000 mg/ (Sodium Chloride) 100 mls @ 200 mls/hr IV NOW ONE Stop: 02/18/22 20:01 Last Infusion: 02/18/22 20:53 Dose: 0 mls/hr Documented By: MARIA C Admin: 02/18/22 20:10 Dose: 200 mls/hr Documented By: JC Oseltamivir Phosphate (Oseltamivir 75 Mg Capsule) 75 mg PO NOW ONE Stop: 02/18/22 19:56 Last Admin: 02/18/22 21:33 Dose: 75 mg Documented By: JC Vital Signs Vital signs: Vital Signs - 8 hr 02/18/22 16:48 Temperature 98.8 F Pulse Rate 106 H Respiratory Rate 18 Blood Pressure 112/57 L Pulse Oximetry 92 Oxygen Delivery Method Room Air Medical Decision Making Lab Data Lab results reviewed: Yes I reviewed the patient's lab results. Result diagrams: 02/18/22 17:00 02/18/22 17:00 Labs: Lab Results 02/18/22 02/18/22 02/18/22 Range/Units 16:50 17:00 17:00 WBC 16.8 H (4.5-11.0) X10^3/uL RBC 4.37 L (4.5-5.9) X10^6/uL Hgb 13.8 (13.5-17.5) g/dL Hct 40.9 L (41-53) % MCV 93.6 (80-100) fL MCH 31.6 (26-34) PG MCHC 33.8 (30-36) % RDW 14.5 (11.6-14.8) % Plt Count 172 (150-400) X10^3/uL Neut % (Auto) 95.0 H (50-75) % Lymph % (Auto) 2.9 L (25-40) % [place] % (Auto) 2.0 L (3-14) % Eos % (Auto) 0.0 L (2-4) % Baso % (Auto) 0.1 (0-2) % Neut # (Auto) 11068 H (8311-1655) /uL Lymph # (Auto) 500 L (0483-7961) /uL [place] # (Auto) 300 (0-900) /uL Eos # (Auto) 0 (0-450) /uL Baso # (Auto) 0 (0-100) /uL PT 15.3 H (10.1-12.7) SECONDS INR 1.3 (0.9-1.3) APTT 32 (26-36) SECONDS Sodium (137-145) mmol/L Potassium (3.4-5.1) mmol/L Chloride (98-107) mmol/L Carbon Dioxide (22-32) mmol/L BUN (9-20) mg/dL Creatinine (0.66-1.25) mg/dL Estimated GFR (>60) mL/min BUN/Creatinine Ratio (6-22) Glucose (80-110) mg/dL Lactate (0.7-2.1) mmol/L Calcium (8.4-10.2) mg/dL Magnesium (1.6-2.3) mg/dL Total Bilirubin (0.2-1.3) mg/dL AST (17-59) IU/L ALT (<50) IU/L Alkaline Phosphatase (38-126) U/L Total Creatine Kinase (55-170) U/L CK-MB (CK-2) (<2.37) ng/mL CK-MB (CK-2) Rel Index (1.5-5.0) % Troponin I (0.01-0.034) ng/mL C-Reactive Protein (<1.0) mg/dL NT-Pro-B Natriuret Pep (<450) pg/mL Total Protein (6.3-8.2) g/dL Albumin (3.5-5.0) g/dL Globulin (1.7-4.1) g/dL Albumin/Globulin Ratio (1.0-2.8) Lipase (23-300) U/L Procalcitonin (<0.5) ng/mL Urine Color Urine Appearance Urine pH (4.5-8.0) Ur Specific [place] (1.000-1.035) Urine Protein (Negative) Urine Glucose (UA) (Negative) g/dL Urine Ketones (NEGATIVE) Urine Occult Blood (Negative) Urine Nitrate (Negative) Urine Bilirubin (NEGATIVE) Urine Urobilinogen (0.2) E.U./dL Ur Leukocyte Esterase (NEGATIVE) Urine RBC (0-5/HPF) Urine WBC (0-5/HPF) Amorphous Sediment Urine Bacteria (None) Granular Casts (None) Ur Culture Indicated? Salicylates (<20) mg/dL SARS-CoV-2 (PCR) Negative (Negative) Influenza A (RT-PCR) Flu a positive H (NEGATIVE) Influenza B (RT-PCR) Flu b negative (NEGATIVE) RSV (PCR) Negative (Negative) 02/18/22 02/18/22 02/18/22 Range/Units 17:00 17:00 18:14 WBC (4.5-11.0) X10^3/uL RBC (4.5-5.9) X10^6/uL Hgb (13.5-17.5) g/dL Hct (41-53) % MCV (80-100) fL MCH (26-34) PG MCHC (30-36) % RDW (11.6-14.8) % Plt Count (150-400) X10^3/uL Neut % (Auto) (50-75) % Lymph % (Auto) (25-40) % [place] % (Auto) (3-14) % Eos % (Auto) (2-4) % Baso % (Auto) (0-2) % Neut # (Auto) (7410-9505) /uL Lymph # (Auto) (5632-3381) /uL [place] # (Auto) (0-900) /uL Eos # (Auto) (0-450) /uL Baso # (Auto) (0-100) /uL PT (10.1-12.7) SECONDS INR (0.9-1.3) APTT (26-36) SECONDS Sodium 134 L (137-145) mmol/L Potassium 3.9 (3.4-5.1) mmol/L Chloride 96 L (98-107) mmol/L Carbon Dioxide 21 L (22-32) mmol/L BUN 28 H (9-20) mg/dL Creatinine 1.73 H (0.66-1.25) mg/dL Estimated GFR 38 L (>60) mL/min BUN/Creatinine Ratio 16.2 (6-22) Glucose 85 (80-110) mg/dL Lactate 2.4 H (0.7-2.1) mmol/L Calcium 8.8 (8.4-10.2) mg/dL Magnesium (1.6-2.3) mg/dL Total Bilirubin 1.2 (0.2-1.3) mg/dL AST 64 H (17-59) IU/L ALT 41 (<50) IU/L Alkaline Phosphatase 89 (38-126) U/L Total Creatine Kinase (55-170) U/L CK-MB (CK-2) (<2.37) ng/mL CK-MB (CK-2) Rel Index (1.5-5.0) % Troponin I (0.01-0.034) ng/mL C-Reactive Protein (<1.0) mg/dL NT-Pro-B Natriuret Pep (<450) pg/mL Total Protein 8.6 H (6.3-8.2) g/dL Albumin 4.8 (3.5-5.0) g/dL Globulin 3.8 (1.7-4.1) g/dL Albumin/Globulin Ratio 1.3 (1.0-2.8) Lipase 46 (23-300) U/L Procalcitonin 4.46 H (<0.5) ng/mL Urine Color Yellow Urine Appearance Clear Urine pH 5.0 (4.5-8.0) Ur Specific [place] 1.025 (1.000-1.035) Urine Protein 2+ H (Negative) Urine Glucose (UA) Negative (Negative) g/dL Urine Ketones Negative (NEGATIVE) Urine Occult Blood 2+ H (Negative) Urine Nitrate Negative (Negative) Urine Bilirubin Negative (NEGATIVE) Urine Urobilinogen 0.2 (0.2) E.U./dL Ur Leukocyte Esterase Negative (NEGATIVE) Urine RBC None seen (0-5/HPF) Urine WBC 0-1/hpf (0-5/HPF) Amorphous Sediment 2+ Urine Bacteria None seen (None) Granular Casts 0-1/lpf (None) Ur Culture Indicated? Cult not indicated Salicylates (<20) mg/dL SARS-CoV-2 (PCR) (Negative) Influenza A (RT-PCR) (NEGATIVE) Influenza B (RT-PCR) (NEGATIVE) RSV (PCR) (Negative) 02/18/22 02/18/22 02/18/22 Range/Units 19:22 19:22 19:22 WBC (4.5-11.0) X10^3/uL RBC (4.5-5.9) X10^6/uL Hgb (13.5-17.5) g/dL Hct (41-53) % MCV (80-100) fL MCH (26-34) PG MCHC (30-36) % RDW (11.6-14.8) % Plt Count (150-400) X10^3/uL Neut % (Auto) (50-75) % Lymph % (Auto) (25-40) % [place] % (Auto) (3-14) % Eos % (Auto) (2-4) % Baso % (Auto) (0-2) % Neut # (Auto) (9004-7488) /uL Lymph # (Auto) (7890-1323) /uL [place] # (Auto) (0-900) /uL Eos # (Auto) (0-450) /uL Baso # (Auto) (0-100) /uL PT (10.1-12.7) SECONDS INR (0.9-1.3) APTT (26-36) SECONDS Sodium (137-145) mmol/L Potassium (3.4-5.1) mmol/L Chloride (98-107) mmol/L Carbon Dioxide (22-32) mmol/L BUN (9-20) mg/dL Creatinine (0.66-1.25) mg/dL Estimated GFR (>60) mL/min BUN/Creatinine Ratio (6-22) Glucose (80-110) mg/dL Lactate (0.7-2.1) mmol/L Calcium (8.4-10.2) mg/dL Magnesium 1.3 L (1.6-2.3) mg/dL Total Bilirubin (0.2-1.3) mg/dL AST (17-59) IU/L ALT (<50) IU/L Alkaline Phosphatase (38-126) U/L Total Creatine Kinase (55-170) U/L CK-MB (CK-2) (<2.37) ng/mL CK-MB (CK-2) Rel Index (1.5-5.0) % Troponin I (0.01-0.034) ng/mL C-Reactive Protein 8.8 H (<1.0) mg/dL NT-Pro-B Natriuret Pep 4780 H (<450) pg/mL Total Protein (6.3-8.2) g/dL Albumin (3.5-5.0) g/dL Globulin (1.7-4.1) g/dL Albumin/Globulin Ratio (1.0-2.8) Lipase (23-300) U/L Procalcitonin (<0.5) ng/mL Urine Color Urine Appearance Urine pH (4.5-8.0) Ur Specific [place] (1.000-1.035) Urine Protein (Negative) Urine Glucose (UA) (Negative) g/dL Urine Ketones (NEGATIVE) Urine Occult Blood (Negative) Urine Nitrate (Negative) Urine Bilirubin (NEGATIVE) Urine Urobilinogen (0.2) E.U./dL Ur Leukocyte Esterase (NEGATIVE) Urine RBC (0-5/HPF) Urine WBC (0-5/HPF) Amorphous Sediment Urine Bacteria (None) Granular Casts (None) Ur Culture Indicated? Salicylates (<20) mg/dL SARS-CoV-2 (PCR) (Negative) Influenza A (RT-PCR) (NEGATIVE) Influenza B (RT-PCR) (NEGATIVE) RSV (PCR) (Negative) 02/18/22 02/18/22 02/18/22 Range/Units 19:22 19:36 19:36 WBC (4.5-11.0) X10^3/uL RBC (4.5-5.9) X10^6/uL Hgb (13.5-17.5) g/dL Hct (41-53) % MCV (80-100) fL MCH (26-34) PG MCHC (30-36) % RDW (11.6-14.8) % Plt Count (150-400) X10^3/uL Neut % (Auto) (50-75) % Lymph % (Auto) (25-40) % [place] % (Auto) (3-14) % Eos % (Auto) (2-4) % Baso % (Auto) (0-2) % Neut # (Auto) (2900-1442) /uL Lymph # (Auto) (1557-2757) /uL [place] # (Auto) (0-900) /uL Eos # (Auto) (0-450) /uL Baso # (Auto) (0-100) /uL PT (10.1-12.7) SECONDS INR (0.9-1.3) APTT (26-36) SECONDS Sodium (137-145) mmol/L Potassium (3.4-5.1) mmol/L Chloride (98-107) mmol/L Carbon Dioxide (22-32) mmol/L BUN (9-20) mg/dL Creatinine (0.66-1.25) mg/dL Estimated GFR (>60) mL/min BUN/Creatinine Ratio (6-22) Glucose (80-110) mg/dL Lactate 1.8 (0.7-2.1) mmol/L Calcium (8.4-10.2) mg/dL Magnesium (1.6-2.3) mg/dL Total Bilirubin (0.2-1.3) mg/dL AST (17-59) IU/L ALT (<50) IU/L Alkaline Phosphatase (38-126) U/L Total Creatine Kinase 533 H (55-170) U/L CK-MB (CK-2) 1.76 (<2.37) ng/mL CK-MB (CK-2) Rel Index 0.3 L (1.5-5.0) % Troponin I 0.045 H (0.01-0.034) ng/mL C-Reactive Protein (<1.0) mg/dL NT-Pro-B Natriuret Pep (<450) pg/mL Total Protein (6.3-8.2) g/dL Albumin (3.5-5.0) g/dL Globulin (1.7-4.1) g/dL Albumin/Globulin Ratio (1.0-2.8) Lipase (23-300) U/L Procalcitonin (<0.5) ng/mL Urine Color Urine Appearance Urine pH (4.5-8.0) Ur Specific [place] (1.000-1.035) Urine Protein (Negative) Urine Glucose (UA) (Negative) g/dL Urine Ketones (NEGATIVE) Urine Occult Blood (Negative) Urine Nitrate (Negative) Urine Bilirubin (NEGATIVE) Urine Urobilinogen (0.2) E.U./dL Ur Leukocyte Esterase (NEGATIVE) Urine RBC (0-5/HPF) Urine WBC (0-5/HPF) Amorphous Sediment Urine Bacteria (None) Granular Casts (None) Ur Culture Indicated? Salicylates < 1.0 (<20) mg/dL SARS-CoV-2 (PCR) (Negative) Influenza A (RT-PCR) (NEGATIVE) Influenza B (RT-PCR) (NEGATIVE) RSV (PCR) (Negative) Imaging Data Chest x-ray: Radiologist's Impression: [address] [address] XRay Report Signed Patient: Gilberto Pulido MR#: [id number] : 1935 Acct:[id number] Age/Sex: 86 / M Date of Service: 02/18/22 Loc: ED Accession Number: [id number] ?? Procedure: XR chest 1V Ordering Provider: Donna Trevino D.O. PROCEDURE:? XR CHEST 1V ? INDICATIONS:? suspected sepsis ? TECHNIQUE:? One view of the chest was acquired.? ? COMPARISON:? [facility], , CHEST 2 VIEW, 11/26/2015, 9:39. ? FINDINGS:? ? Surgical changes and devices:? None.? ? Lungs and pleura:? Mild diffuse reticulonodular pulmonary opacity.? No pleural effusions or pneumothorax.? ? Mediastinum:? Mediastinal contours appear normal.? Heart size is normal.? ? Bones and chest wall:? No suspicious bony lesions.? Overlying soft tissues appear unremarkable.? ? IMPRESSION:? Mild atypical pneumonia. ? ? Dictated by: Liz Zelaya M.D. on 02/18/2022 at 18:01 ? ? Approved by: Liz Zelaya M.D. on 02/18/2022 at 18:02?? MDM Narrative Medical decision making narrative: Influenza positive, does have a leukocytosis. Chest x-ray concerning for pneumonia. Also has an elevated procalcitonin. Patient was given Tamiflu. After discussion with the admitting provider antibiotics were administered because of the elevated procalcitonin although it is most likely flu pneumonia. Given his age, oxygen saturations low while lying in bed and x-ray findings patient does require admission to the hospital. Discussed this with him and he expressed understanding. Discussed the admission with MARCO A Grullon the [facility] provider who will admit. Urinalysis not consistent with a UTI. Discharge Plan Departure Patient Disposition: Admitted As Inpatient Clinical Impression: Influenza A, Pneumonia, Hypoxia Admit Date/Time: 02/18/22 20:17 Admit Provider: Ct Grullon
--- NOTE | 2022-02-18 20:00 | PC.NURSE ---
Lab at bedside - blood drawn from IV - labelled at bedside - given to laborer aquatic life - pt tolerated well
[2022-02-18 20:04] LABS: Creatine Kinase 533 U/L (55-170); Lactate 2HR (Lactic Acid Rflx) 1.8 mmol/L (0.7-2.1)
[2022-02-18] MEDS: SODIUM CHLORIDE 0.9% 1,000 ML 1000 ML IV (20:05)
[2022-02-18] MEDS: cefTRIAXone 1,000 MG in SODIUM CHLORIDE 0.9% 100 ML 200 MG IV (20:10)
[2022-02-18 20:16] LABS: Troponin I 0.045 ng/mL (0.01-0.034)
[2022-02-18 20:20] LABS: CKMB % Relative Index 0.3 % (1.5-5.0); Creatine Kinase MB 1.76 ng/mL (<2.37)
[2022-02-18] MEDS: ACETAMINOPHEN 325 MG TABLET 650 MG PO (20:32)
[2022-02-18] MEDS: AZITHROMYCIN 500 MG in DEXTROSE 5% IN WATER 250 ML 250 MG IV (20:59)
--- NOTE | 2022-02-18 21:30 | PC.NURSE ---
Given applesauce per pt request - took medication with applesauce - tolerated well
[2022-02-18] MEDS: OSELTAMIVIR 75 MG CAPSULE PO (21:33)
--- NOTE | 2022-02-18 22:19 | PM.HP.1 ---
History of Present Illness History of Present Illness Date Patient Seen: 02/18/22 Time Patient Seen: 22:19 Chief complaint: R/O urosepsis Narrative: Gilberto Pulido is an 86-year-old male with a medical history of hyperlipidemia, polyneuropathy, osteoarthritis, coronary artery calcification, and carcinoid tumor ileocecal valve who presented to the ED today after being sent over from Dr. Pike's office he developed influenza a over the he is had progressive weakness body aches fever chills and shortness of breath for the past week worsening over the last day or 2, NS found to be hypoxic with saturations around 88% on room air, mildly tachycardic and tachypneic. On admit patient states his shortness of breath has improved denies fever, body aches, chills, chest pain, headache, changes in vision, cough, congestion, abdominal pain, nausea, vomiting, constipation, hematemesis, urinary symptoms, hematuria, melena, recent falls injury or trauma. At the time of admit temp 98.8?, BP 102/56, HR 83, RR 27, O2 saturation 92% on room air. Patient's previous systolic blood pressures have run 114-144 averaging 130s to 140s. Patient has an elevated white count 16.8 with a left shift neutrophils 16,000, noted DANIELLA with serum anion gap of 17 metabolic acidosis: sodium 134, chloride 96, BUN 28, bicarb 21, creatinine 1.73, GFR 38, patient's baseline creatinine for 2021 1.27-1.36, GFR 50-55, negative for COVID, influenza B, RSV, urinalysis. Patient is positive for influenza a, lactate 2.4, procalcitonin 4.46, CK 533, sofa score: 2,-meeting sepsis without septic shock. Patient's chest x-ray demonstrates mild atypical pneumonia. Patient is admitted with sepsis without septic shock with a serum and gap metabolic acidosis secondary to lactic acidosis and CKD with DANIELLA, influenza a and pneumonia. Patient History Medical History Asthma, mild intermittent Coronary artery calcification seen on CAT scan Do not resuscitate Mixed hyperlipidemia Polyneuropathy, unspecified Primary osteoarthritis involving multiple joints Surgical History (Updated 02/18/22 @ 22:27 by OZZY Langford) History of right hemicolectomy Family & Social History Family History Mother Tobacco abuse Father Stroke Safety & Behavioral: Feels Safe in Current Yes Environment Been Physically Hurt or No Threatened By a Person Tobacco & Substance use: Smoking Status Former smoker Substance Use Type does not use Meds Home Medications and Allergies Home Medications Medication Instructions Recorded Confirmed Type octreotide,microspheres IM MONTHLY 01/12/22 02/18/22 History [Sandostatin LAR Depot] Allergies Allergy/AdvReac Type Severity Reaction Status Date / Time No Known Drug Allergies Allergy Verified 02/18/22 16:53 Review of Systems Review of Systems Narrative: All 12 point systems reviewed with the patient and are negative except otherwise documented. Exam Vital Signs (past 8 hours): - 02/18/22 16:48 02/18/22 20:53 02/18/22 21:00 Temperature 98.8 F Pulse Rate 106 H 87 Respiratory Rate 18 27 H Blood Pressure 112/57 L 102/56 L Pulse Oximetry 92 92 Oxygen Delivery Method Room Air Room Air 02/18/22 21:00 Temperature Pulse Rate 83 Respiratory Rate Blood Pressure Pulse Oximetry 92 Oxygen Delivery Method Room Air Oxygen Delivery Method Room Air Narrative Exam Narrative: General: Patient is a well-developed, well-nourished pleasant elderly male, in no distress at this time. HEENT: Normocephalic, atraumatic, extraocular muscles intact, oral pharynx is clear and mucous membranes are dry. Neck is supple and symmetric, trachea is midline, Negative for JVD Chest: Normal AP diameter and contour without kyphoscoliosis, no nasal flaring, retractions, or tachypneic labored Lungs: Auscultation of all lung infante crackles in bilateral bases occasional expiratory wheezing noted in left upper lobe. Cardio: regular rate and rhythm without murmur, rubs, or gallops, no carotid bruit, no cardiac pulsations present. Abdomen: Soft nontender, negative for organomegaly, or masses. Bowel sounds are present in all 4 quadrants without guarding or rebound, no CVA tenderness. Musculoskeletal: Muscle strength and tone are equal within normal limits, no deformity, crepitus, effusions, cyanosis, clubbing or edema present. Full range of motion intact radial and pedal pulses are normal. Skin: Warm dry and intact without rashes, ulcerations or petechiae. Neuro: Alert and orientated x3, moves all extremities, sensation to touch intact, no gross deficits noted of cranial nerves. Psych: Patient has a well-kept appearance, appropriate affect, mental status attitude thought context and judgment are appropriate for age. Objective Labs Result Diagrams: 02/18/22 17:00 02/18/22 17:00 Labs: Laboratory Results - last 24 hr 02/18/22 02/18/22 02/18/22 16:50 17:00 17:00 WBC 16.8 H RBC 4.37 L Hgb 13.8 Hct 40.9 L MCV 93.6 MCH 31.6 MCHC 33.8 RDW 14.5 Plt Count 172 Neut % (Auto) 95.0 H Lymph % (Auto) 2.9 L [place] % (Auto) 2.0 L Eos % (Auto) 0.0 L Baso % (Auto) 0.1 Neut # (Auto) 19297 H Lymph # (Auto) 500 L [place] # (Auto) 300 Eos # (Auto) 0 Baso # (Auto) 0 PT 15.3 H INR 1.3 APTT 32 Sodium Potassium Chloride Carbon Dioxide BUN Creatinine Estimated GFR BUN/Creatinine Ratio Glucose Lactate Calcium Total Bilirubin AST ALT Alkaline Phosphatase Total Creatine Kinase CK-MB (CK-2) CK-MB (CK-2) Rel Index Troponin I Total Protein Albumin Globulin Albumin/Globulin Ratio Lipase Procalcitonin Urine Color Urine Appearance Urine pH Ur Specific [place] Urine Protein Urine Glucose (UA) Urine Ketones Urine Occult Blood Urine Nitrate Urine Bilirubin Urine Urobilinogen Ur Leukocyte Esterase Urine RBC Urine WBC Amorphous Sediment Urine Bacteria Granular Casts Ur Culture Indicated? SARS-CoV-2 (PCR) Negative Influenza A (RT-PCR) Flu a positive H Influenza B (RT-PCR) Flu b negative RSV (PCR) Negative 02/18/22 02/18/22 02/18/22 17:00 17:00 18:14 WBC RBC Hgb Hct MCV MCH MCHC RDW Plt Count Neut % (Auto) Lymph % (Auto) [place] % (Auto) Eos % (Auto) Baso % (Auto) Neut # (Auto) Lymph # (Auto) [place] # (Auto) Eos # (Auto) Baso # (Auto) PT INR APTT Sodium 134 L Potassium 3.9 Chloride 96 L Carbon Dioxide 21 L BUN 28 H Creatinine 1.73 H Estimated GFR 38 L BUN/Creatinine Ratio 16.2 Glucose 85 Lactate 2.4 H Calcium 8.8 Total Bilirubin 1.2 AST 64 H ALT 41 Alkaline Phosphatase 89 Total Creatine Kinase CK-MB (CK-2) CK-MB (CK-2) Rel Index Troponin I Total Protein 8.6 H Albumin 4.8 Globulin 3.8 Albumin/Globulin Ratio 1.3 Lipase 46 Procalcitonin 4.46 H Urine Color Yellow Urine Appearance Clear Urine pH 5.0 Ur Specific [place] 1.025 Urine Protein 2+ H Urine Glucose (UA) Negative Urine Ketones Negative Urine Occult Blood 2+ H Urine Nitrate Negative Urine Bilirubin Negative Urine Urobilinogen 0.2 Ur Leukocyte Esterase Negative Urine RBC None seen Urine WBC 0-1/hpf Amorphous Sediment 2+ Urine Bacteria None seen Granular Casts 0-1/lpf Ur Culture Indicated? Cult not indicated SARS-CoV-2 (PCR) Influenza A (RT-PCR) Influenza B (RT-PCR) RSV (PCR) 02/18/22 02/18/22 19:36 19:36 WBC RBC Hgb Hct MCV MCH MCHC RDW Plt Count Neut % (Auto) Lymph % (Auto) [place] % (Auto) Eos % (Auto) Baso % (Auto) Neut # (Auto) Lymph # (Auto) [place] # (Auto) Eos # (Auto) Baso # (Auto) PT INR APTT Sodium Potassium Chloride Carbon Dioxide BUN Creatinine Estimated GFR BUN/Creatinine Ratio Glucose Lactate 1.8 Calcium Total Bilirubin AST ALT Alkaline Phosphatase Total Creatine Kinase 533 H CK-MB (CK-2) 1.76 CK-MB (CK-2) Rel Index 0.3 L Troponin I 0.045 H Total Protein Albumin Globulin Albumin/Globulin Ratio Lipase Procalcitonin Urine Color Urine Appearance Urine pH Ur Specific [place] Urine Protein Urine Glucose (UA) Urine Ketones Urine Occult Blood Urine Nitrate Urine Bilirubin Urine Urobilinogen Ur Leukocyte Esterase Urine RBC Urine WBC Amorphous Sediment Urine Bacteria Granular Casts Ur Culture Indicated? SARS-CoV-2 (PCR) Influenza A (RT-PCR) Influenza B (RT-PCR) RSV (PCR) Assessment & Plan Assessment & Plan narrative: Gilberto Pulido is an 86-year-old male with a medical history of hyperlipidemia, polyneuropathy, osteoarthritis, coronary artery calcification, and carcinoid tumor ileocecal valve who presented to the ED today after being sent over from Dr. Pike's office he developed influenza a over the iday he is had progressive weakness body aches fever chills and shortness of breath for the past week. Patient is admitted with sepsis without septic shock with a serum and gap metabolic acidosis secondary to lactic acidosis and CKD, DANIELLA, influenza a and pneumonia. 1. Sepsis without septic shock, acute, present on admission -likely secondary to pneumonia(bacterial) -temp 98.8?, BP 102/56, HR 83, RR 27, O2 saturation 92% on room air. Patient's previous SBP's averaging 130s to 140s. -wbc 16.8, neutrophils 16,000, -serum anion gap of 17 metabolic acidosis: sodium 134, chloride 96, BUN 28, bicarb 21, creatinine 1.73 -positive for influenza a, lactate 2.4, procalcitonin 4.46, CK 533, sofa score: 2 -chest x-ray demonstrates mild atypical pneumonia -monitor for septic shock, telemedicine, NS at 80 cc/HR -urine, sputum, blood cultures pending, ordered MRSA swab salicylate CRP 2.Metabolic acidosis serum anion gap, secondary to lactic acidosis and CKD G3A, acute on chronic, with DANIELLA, acute, present on admission -serum anion gap of 17 metabolic acidosis: sodium 134, chloride 96, BUN 28, bicarb 21, creatinine 1.73, GFR 38 - baseline creatinine for 2021 1.27-1.36, GFR 50-55 -ordered ABGs, monitor electrolyte, gentle hydration NS 80 cc/HR 3. Influenza a, acute, present on admission -symptom management -Tamiflu 4. Pneumonia, likely bacterial, acute, present on admission - lactate 2.4, procalcitonin 4.46, CK 533, sofa score: 2 -wbc 16.8, neutrophils 16,000 -chest x-ray demonstrates mild atypical pneumonia -respiratory consult, prednisone daily, DuoNebs, incentive spirometry -initiate Rocephin and azithromycin -ordered sputum culture 5. Carcinoid tumor of ileocecal valve, acute on chronic, present on admission -managed by Dr. Rosenthal and Dr. Skylar JACOBSON -continue octreotide 6. Polyneuropathy, chronic, present on admission -no current medication 7. Osteoarthritis, chronic, present on admission -no current medication 8. Malnutrition, mild, acute on chronic, present on admission -BMI 22.4 -patient's malnutrition places them at high risk for medical and surgical complications because of the severe malnutrition in relation to acute illness/chronic illness. This increases the difficulty in complexity of medical management and increases the chances poor outcomes such as mortality and morbidity as well as impaired wound healing, and immune suppression. -dietary consult ordered to evaluate and implement steps to improve caloric intake and nutrition. Code status:DNR Surrogate decision maker: Vickie patient's COVID PCR: Negative DVT/VTE prophylaxis: Lovenox and SCDs Disposition: Patient admitted to acute care, for resolution of sepsis, DANIELLA symptom management of influenza a, bacterial and symptom management of pneumonia, expected length of stay greater than 3 midnights. I have utilized all available immediate resources to obtain, update, or review the patient's current medications. I confirmed that the patient's advanced care plan is present, Code status is documented and/or surrogate decision maker is listed in the patient's medical record. I have personally reviewed patient's chart notes from PCP, specialists, diagnostic imaging, and laboratory, Time Spent With Patient Critical Care time: I spent a total of [] minutes of critical care time on this patient's care today; this time is exclusive of procedural time.
--- NOTE | 2022-02-18 22:30 | PC.NURSE ---
In to check on the patient - daughter states that she is concerned with the pt's HR as she has been watching the monitor - states that pt's HR is changing - noted that the HR goes from 70-90 - the patient denies chest pain or shortness or breath - no concerns noted
[2022-02-18 22:34] LABS: Salicylate < 1.0 mg/dL (<20)
[2022-02-18 22:35] LABS: Magnesium 1.3 mg/dL (1.6-2.3)
[2022-02-18 22:38] LABS: C-Reactive Protein Quant 8.8 mg/dL (<1.0)
[2022-02-18 22:45] LABS: NT-proBNP (BNP-Adult 18+) 4780 pg/mL (<450)
--- NOTE | 2022-02-18 23:15 | PC.NURSE ---
No changes at this time
[2022-02-19] VITALS (31 sets, daily range): BP systolic 96–112; BP diastolic 55–64; PULSE 71–98; RESP 16–23; O2SAT 91–97
--- NOTE | 2022-02-19 | PC.NURSE ---
Resting quietly with daughter at bedside - no needs voiced - PWD with respirations equal and unlabored bilaterally - VSS
[2022-02-19] MEDS: SODIUM CHLORIDE 0.9% 1,000 ML 80 ML IV (00:18)
--- NOTE | 2022-02-19 01:00 | PC.NURSE ---
Hospitalist at bedside for evaluation - daughter at bedside
--- NOTE | 2022-02-19 02:00 | PC.NURSE ---
Up to bedside commode - steady gait
--- NOTE | 2022-02-19 02:03 | PC.NURSE ---
2200 Pt provided a hospital bed for comfort
--- NOTE | 2022-02-19 03:00 | PC.NURSE ---
Resting quietly in NAD - no needs voiced - PWD with respirations equal and unlabored bilaterally - daughter at bedside
--- NOTE | 2022-02-19 03:02 | RT ---
Pt refused ABG, provider Jose Grullon notified.
--- NOTE | 2022-02-19 04:00 | PC.NURSE ---
Resting quietly in NAD - daughter at bedside - left to rest - VSS - no needs voiced
--- NOTE | 2022-02-19 05:00 | PC.NURSE ---
Urinal given - states that he is nauseas when he first gets up - but it resolves quickly once up - able to use urinal without assistance
--- NOTE | 2022-02-19 06:00 | PC.NURSE ---
Resting quietly in NAD - no needs voiced - PWD with respirations equal and unlabored bilaterally - daughter remains at bedside - awaiting admission
[2022-02-19 06:59] LABS: Add Manual Diff / Slide Review NO; Basophils Absolute Auto 0 /uL (0-100); Basophils Percent Auto 0.1 % (0-2); Eosinophils Absolute Auto 0 /uL (0-450); Hematocrit 33.6 % (41-53); Hemoglobin 11.5 g/dL (13.5-17.5); Lymphocytes Absolute Auto 900 /uL (1100-4500); Lymphocytes Percent Auto 7.5 % (25-40); Mean Corpuscular HGB Conc 34.2 % (30-36); Mean Corpuscular Volume 93.4 fL (80-100); Monocytes Absolute Auto 200 /uL (0-900); Monocytes Percent Auto 2.1 % (3-14); Neutrophils Absolute Auto 10800 /uL (1500-7000); Neutrophils Percent Auto 90.3 % (50-75); Platelet Count 140 X10^3/uL (150-400); Red Blood Cell Count 3.59 X10^6/uL (4.5-5.9); Red Cell Distribution Width 14.8 % (11.6-14.8)
[2022-02-19 07:02] LABS: INR 1.4 (0.9-1.3); Prothrombin Time 15.6 SECONDS (10.1-12.7)
[2022-02-19 07:10] LABS: Alanine Aminotransferase 29 IU/L (<50); Albumin 3.1 g/dL (3.5-5.0); Albumin Globulin Ratio 1.1 (1.0-2.8); Alkaline Phosphatase 59 U/L (38-126); Aspartate Aminotransferase 48 IU/L (17-59); BUN Creatinine Ratio 17.1 (6-22); Bilirubin Total 0.7 mg/dL (0.2-1.3); Blood Urea Nitrogen 25 mg/dL (9-20); Carbon Dioxide 23 mmol/L (22-32); Chloride 101 mmol/L (98-107); Estimated Glomerular Filt Rate 47 mL/min (>60); Globulin 2.8 g/dL (1.7-4.1); Glucose 109 mg/dL (80-110); HEMOLYSIS < 15 (0-50); Magnesium 1.4 mg/dL (1.6-2.3); Potassium 4.1 mmol/L (3.4-5.1); Sodium 131 mmol/L (137-145); Total Protein 5.9 g/dL (6.3-8.2)
--- NOTE | 2022-02-19 07:19 | PC.NURSE ---
Report given to dayshift RN team - care relinquished at this time
[2022-02-19 07:24] LABS: Procalcitonin 4.19 ng/mL (<0.5)
[2022-02-19 07:28] LABS: Calcium 7.4 mg/dL (8.4-10.2)
[2022-02-19] MEDS: cefTRIAXone 1,000 MG in SODIUM CHLORIDE 0.9% 100 ML 200 MG IV (10:15)
[2022-02-19] MEDS: ACETAMINOPHEN 325 MG TABLET 650 MG PO (10:15)
[2022-02-19] MEDS: OSELTAMIVIR 75 MG CAPSULE PO (10:15)
[2022-02-19] MEDS: APIXABAN 5 MG TABLET 2.5 MG PO (10:16)
[2022-02-19] MEDS: MAGNESIUM CHLORIDE 64 MG TABLET 128 MG PO (10:27)
[2022-02-19] MEDS: AZITHROMYCIN 500 MG in DEXTROSE 5% IN WATER 250 ML 250 MG IV (10:56)
[2022-02-19] MEDS: predniSONE 20 MG TABLET 50 MG PO (10:58)
--- NOTE | 2022-02-19 13:37 | P.DS_ITS ---
History of Present Illness History of Present Illness Date Patient Seen: 02/18/22 Time Patient Seen: 22:19 Chief complaint: R/O urosepsis Narrative: Per admitting provider: Gilberto Pulido is an 86-year-old male with a medical history of hyperlipidemia, polyneuropathy, osteoarthritis, coronary artery calcification, and carcinoid tumor ileocecal valve who presented to the ED today after being sent over from Dr. Pike's office he developed influenza a over the he is had progressive weakness body aches fever chills and shortness of breath for the past week worsening over the last day or 2, NS found to be hypoxic with saturations around 88% on room air, mildly tachycardic and tachypneic. On admit patient states his shortness of breath has improved denies fever, body aches, chills, chest pain, headache, changes in vision, cough, congestion, abdominal pain, nausea, vomiting, constipation, hematemesis, urinary symptoms, hematuria, melena, recent falls injury or trauma. At the time of admit temp 98.8?, BP 102/56, HR 83, RR 27, O2 saturation 92% on room air. Patient's previous systolic blood pressures have run 114-144 averaging 130s to 140s. Patient has an elevated white count 16.8 with a left shift neutrophils 16,000, noted DANIELLA with serum anion gap of 17 metabolic acidosis: sodium 134, chloride 96, BUN 28, bicarb 21, creatinine 1.73, GFR 38, patient's baseline creatinine for 2021 1.27-1.36, GFR 50-55, negative for COVID, influenza B, RSV, urinalysis. Patient is positive for influenza a, lactate 2.4, procalcitonin 4.46, CK 533, sofa score: 2,-meeting sepsis without septic shock. Patient's chest x-ray demonstrates mild atypical pneumonia. Patient is admitted with sepsis without septic shock with a serum and gap metabolic acidosis secondary to lactic acidosis and CKD with DANIELLA, influenza a and pneumonia. Discharge Providers Provider Date of admission: 02/18/22 20:17 Discharge Date: 02/19/22 Primary care physician: Steven Pike MD Consults: 02/18/22 22:12 Consult to Dietitian, Adult Routine Comment: Reason For Exam: BMI 22.1 Consult to Occupational Therapy Evaluate & Treat Comment: weakness/CA Physician Instructions: Evaluate and treat Consult to Physical Therapy Evaluate & Treat Comment: weakness /CA Physician Instructions: Evaluate and Treat Discharge provider: Link Westbrook MD Summary Hospital Course Discharge Diagnosis: 1. Flu A 2. Probable superimposed pneumonia 3. Possible atrial fibrillation 4. Hyperlipidemia 5. History of carcinoid tumor s/p R hemicolectomy Hospital Course: Mr. Pulido came in to the hospital with fatigue and cough. He was ultimately found to be Flu positive. He had infiltrates on his xray and high procalcitonin so he was empirically treated for bacterial superinfection. He improved with treatment. On day of discharge he was able to ambulate around the department and felt well with no significant shortness of breath or hypoxia. He was discharged home with tamiflu and levaquin to treat his infections. He had a possible self resolving run of atrial fibrillation, he can discuss further with his family and PCP if he wishes to work this up further. Exam Vital Signs (past 8 hours): - 02/19/22 06:00 02/19/22 06:30 02/19/22 07:00 Pulse Rate 71 72 75 Respiratory Rate 18 17 18 Blood Pressure Pulse Oximetry 94 93 95 02/19/22 07:30 02/19/22 07:43 02/19/22 07:43 Pulse Rate 80 77 Respiratory Rate 18 18 Blood Pressure 108/61 Pulse Oximetry 95 96 02/19/22 08:00 02/19/22 08:00 02/19/22 08:30 Pulse Rate 77 77 Respiratory Rate 18 17 Blood Pressure 112/55 L Pulse Oximetry 96 96 02/19/22 09:00 02/19/22 09:30 02/19/22 10:00 Pulse Rate 92 H 78 80 Respiratory Rate 21 23 Blood Pressure Pulse Oximetry 96 96 97 02/19/22 10:30 02/19/22 11:00 02/19/22 11:07 Pulse Rate 83 73 Respiratory Rate 23 23 Blood Pressure 100/59 L Pulse Oximetry 97 96 02/19/22 11:07 02/19/22 11:30 02/19/22 12:18 Pulse Rate 83 88 95 H Respiratory Rate 22 22 Blood Pressure Pulse Oximetry 96 96 94 02/19/22 12:30 02/19/22 12:31 02/19/22 12:31 Pulse Rate 81 83 Respiratory Rate Blood Pressure 106/58 L Pulse Oximetry 93 93 Oxygen Delivery Method Room Air Narrative Exam Narrative: GEN: fatigued CV: regular rate and rhythm PULM: clear bilaterally ABD: soft, nontender, nondistended Objective Labs Result Diagrams: 02/19/22 06:44 02/19/22 06:44 Labs: Laboratory Results - last 24 hr 02/18/22 02/18/22 02/18/22 16:50 17:00 17:00 WBC 16.8 H RBC 4.37 L Hgb 13.8 Hct 40.9 L MCV 93.6 MCH 31.6 MCHC 33.8 RDW 14.5 Plt Count 172 Neut % (Auto) 95.0 H Lymph % (Auto) 2.9 L Sterling % (Auto) 2.0 L Eos % (Auto) 0.0 L Baso % (Auto) 0.1 Neut # (Auto) 10149 H Lymph # (Auto) 500 L Sterling # (Auto) 300 Eos # (Auto) 0 Baso # (Auto) 0 PT 15.3 H INR 1.3 APTT 32 Sodium Potassium Chloride Carbon Dioxide BUN Creatinine Estimated GFR BUN/Creatinine Ratio Glucose Lactate Calcium Magnesium Total Bilirubin AST ALT Alkaline Phosphatase Total Creatine Kinase CK-MB (CK-2) CK-MB (CK-2) Rel Index Troponin I C-Reactive Protein NT-Pro-B Natriuret Pep Total Protein Albumin Globulin Albumin/Globulin Ratio Lipase Procalcitonin Urine Color Urine Appearance Urine pH Ur Specific Bumpass Urine Protein Urine Glucose (UA) Urine Ketones Urine Occult Blood Urine Nitrate Urine Bilirubin Urine Urobilinogen Ur Leukocyte Esterase Urine RBC Urine WBC Amorphous Sediment Urine Bacteria Granular Casts Ur Culture Indicated? Salicylates SARS-CoV-2 (PCR) Negative Influenza A (RT-PCR) Flu a positive H Influenza B (RT-PCR) Flu b negative RSV (PCR) Negative 02/18/22 02/18/22 02/18/22 17:00 17:00 18:14 WBC RBC Hgb Hct MCV MCH MCHC RDW Plt Count Neut % (Auto) Lymph % (Auto) Sterling % (Auto) Eos % (Auto) Baso % (Auto) Neut # (Auto) Lymph # (Auto) Sterling # (Auto) Eos # (Auto) Baso # (Auto) PT INR APTT Sodium 134 L Potassium 3.9 Chloride 96 L Carbon Dioxide 21 L BUN 28 H Creatinine 1.73 H Estimated GFR 38 L BUN/Creatinine Ratio 16.2 Glucose 85 Lactate 2.4 H Calcium 8.8 Magnesium Total Bilirubin 1.2 AST 64 H ALT 41 Alkaline Phosphatase 89 Total Creatine Kinase CK-MB (CK-2) CK-MB (CK-2) Rel Index Troponin I C-Reactive Protein NT-Pro-B Natriuret Pep Total Protein 8.6 H Albumin 4.8 Globulin 3.8 Albumin/Globulin Ratio 1.3 Lipase 46 Procalcitonin 4.46 H Urine Color Yellow Urine Appearance Clear Urine pH 5.0 Ur Specific Bumpass 1.025 Urine Protein 2+ H Urine Glucose (UA) Negative Urine Ketones Negative Urine Occult Blood 2+ H Urine Nitrate Negative Urine Bilirubin Negative Urine Urobilinogen 0.2 Ur Leukocyte Esterase Negative Urine RBC None seen Urine WBC 0-1/hpf Amorphous Sediment 2+ Urine Bacteria None seen Granular Casts 0-1/lpf Ur Culture Indicated? Cult not indicated Salicylates SARS-CoV-2 (PCR) Influenza A (RT-PCR) Influenza B (RT-PCR) RSV (PCR) 02/18/22 02/18/22 02/18/22 19:22 19:22 19:22 WBC RBC Hgb Hct MCV MCH MCHC RDW Plt Count Neut % (Auto) Lymph % (Auto) Sterling % (Auto) Eos % (Auto) Baso % (Auto) Neut # (Auto) Lymph # (Auto) Sterling # (Auto) Eos # (Auto) Baso # (Auto) PT INR APTT Sodium Potassium Chloride Carbon Dioxide BUN Creatinine Estimated GFR BUN/Creatinine Ratio Glucose Lactate Calcium Magnesium 1.3 L Total Bilirubin AST ALT Alkaline Phosphatase Total Creatine Kinase CK-MB (CK-2) CK-MB (CK-2) Rel Index Troponin I C-Reactive Protein 8.8 H NT-Pro-B Natriuret Pep 4780 H Total Protein Albumin Globulin Albumin/Globulin Ratio Lipase Procalcitonin Urine Color Urine Appearance Urine pH Ur Specific Bumpass Urine Protein Urine Glucose (UA) Urine Ketones Urine Occult Blood Urine Nitrate Urine Bilirubin Urine Urobilinogen Ur Leukocyte Esterase Urine RBC Urine WBC Amorphous Sediment Urine Bacteria Granular Casts Ur Culture Indicated? Salicylates SARS-CoV-2 (PCR) Influenza A (RT-PCR) Influenza B (RT-PCR) RSV (PCR) 02/18/22 02/18/22 02/18/22 19:22 19:36 19:36 WBC RBC Hgb Hct MCV MCH MCHC RDW Plt Count Neut % (Auto) Lymph % (Auto) Sterling % (Auto) Eos % (Auto) Baso % (Auto) Neut # (Auto) Lymph # (Auto) Sterling # (Auto) Eos # (Auto) Baso # (Auto) PT INR APTT Sodium Potassium Chloride Carbon Dioxide BUN Creatinine Estimated GFR BUN/Creatinine Ratio Glucose Lactate 1.8 Calcium Magnesium Total Bilirubin AST ALT Alkaline Phosphatase Total Creatine Kinase 533 H CK-MB (CK-2) 1.76 CK-MB (CK-2) Rel Index 0.3 L Troponin I 0.045 H C-Reactive Protein NT-Pro-B Natriuret Pep Total Protein Albumin Globulin Albumin/Globulin Ratio Lipase Procalcitonin Urine Color Urine Appearance Urine pH Ur Specific Bumpass Urine Protein Urine Glucose (UA) Urine Ketones Urine Occult Blood Urine Nitrate Urine Bilirubin Urine Urobilinogen Ur Leukocyte Esterase Urine RBC Urine WBC Amorphous Sediment Urine Bacteria Granular Casts Ur Culture Indicated? Salicylates < 1.0 SARS-CoV-2 (PCR) Influenza A (RT-PCR) Influenza B (RT-PCR) RSV (PCR) 02/19/22 02/19/22 02/19/22 06:44 06:44 06:44 WBC 12.0 H RBC 3.59 L Hgb 11.5 L Hct 33.6 L MCV 93.4 MCH 32.0 MCHC 34.2 RDW 14.8 Plt Count 140 L Neut % (Auto) 90.3 H Lymph % (Auto) 7.5 L Sterling % (Auto) 2.1 L Eos % (Auto) 0.0 L Baso % (Auto) 0.1 Neut # (Auto) 89843 H Lymph # (Auto) 900 L Sterling # (Auto) 200 Eos # (Auto) 0 Baso # (Auto) 0 PT 15.6 H INR 1.4 H APTT Sodium 131 L Potassium 4.1 Chloride 101 Carbon Dioxide 23 BUN 25 H Creatinine 1.46 H Estimated GFR 47 L BUN/Creatinine Ratio 17.1 Glucose 109 Lactate Calcium 7.4 L Magnesium 1.4 L Total Bilirubin 0.7 AST 48 ALT 29 Alkaline Phosphatase 59 Total Creatine Kinase CK-MB (CK-2) CK-MB (CK-2) Rel Index Troponin I C-Reactive Protein NT-Pro-B Natriuret Pep Total Protein 5.9 L Albumin 3.1 L Globulin 2.8 Albumin/Globulin Ratio 1.1 Lipase Procalcitonin 4.19 H Urine Color Urine Appearance Urine pH Ur Specific Bumpass Urine Protein Urine Glucose (UA) Urine Ketones Urine Occult Blood Urine Nitrate Urine Bilirubin Urine Urobilinogen Ur Leukocyte Esterase Urine RBC Urine WBC Amorphous Sediment Urine Bacteria Granular Casts Ur Culture Indicated? Salicylates SARS-CoV-2 (PCR) Influenza A (RT-PCR) Influenza B (RT-PCR) RSV (PCR) [facility] Medical History Asthma, mild intermittent Coronary artery calcification seen on CAT scan Do not resuscitate Mixed hyperlipidemia Polyneuropathy, unspecified Primary osteoarthritis involving multiple joints Surgical History (Updated 02/18/22 @ 22:27 by BRETT Langford-ESTHER) History of right hemicolectomy Family History Mother Tobacco abuse Father Stroke Social History Smoking Status: Former smoker Discharge Plan Discharge Plan Patient Disposition: Home Provider Discharge Comment: Mr. Pulido came in with weakness and cough. He had trouble breathing and was flu positive. He likely has a bacterial pneumonia supe rimposed infection. He will be discharged on tamiflu and levaquin. He had an self-resolved episode of atrial fibrillation and should follow up with his PCP for further evaluation and discussion. Discharge orders & Medications Prescriptions: New oseltamivir [Tamiflu] 75 mg Capsule 75 mg PO BID Qty: 8 0RF levofloxacin 750 mg tablet 750 mg PO DAILY Qty: 4 0RF Continued octreotide,microspheres [Sandostatin [place]] IM MONTHLY Label Comments: takes monthly at cancer care Follow up/Referrals: Steven Pike MD [Primary Care Provider] - 2 Weeks (hospitalized for flu and probable pneumonia) Diet/Activity/Treatments Diet: Regular Visit Report/Discharge Packet Instructions: Pneumonia-Adult, Influenza, DI for Pneumonia -- Adult, DI for Influenza -- Adult Discharge Data Primary Care Provider: Steven Pike V
== END 2022-02-19 12:39 | disposition home or self-care (01) | DRG 871 ==
LOC: ED 19:57 → AC 20:18
PROVIDERS: Emergency Medicine; Admitting Provider Nurse Practitioner Family; Emergency Provider Emergency Medicine; PCP Internal Medicine; Referring Provider Emergency Medicine; Visit Provider Nurse Practitioner Family
DX: A41.9 Sepsis, unspecified organism (principal); J18.9 Pneumonia, unspecified organism; N17.9 Acute kidney failure, unspecified; E87.20 Acidosis, unspecified; E44.1 Mild protein-calorie malnutrition; J10.1 Influenza due to other identified influenza virus with other respiratory manifestations; N18.31 Chronic kidney disease, stage 3a; D3A.012 Benign carcinoid tumor of the ileum; I48.91 Unspecified atrial fibrillation; Z66 Do not resuscitate; Z68.22 Body mass index [BMI] 22.0-22.9, adult; Z87.891 Personal history of nicotine dependence
CPT/HCPCS: 0241U; 36415; 71045; 80053; 80329; 81001; 82550; 82553; 83605; 83690; 83735; 83880; 84145; 84484; 85025; 85610; 85730; 86140; 87040; 96365; 96366; 96367; 99283; 99284; G0480; J0696

== ENCOUNTER → 2022-02-26 12:45 | Outpatient (CLI) | payer OTHER, SELFPAY ==
[2022-02-26 13:25] LABS: Hematocrit 37.8 % (41-53); Hemoglobin 12.5 g/dL (13.5-17.5); Mean Corpuscular HGB Conc 33.1 % (30-36); Mean Corpuscular Hemoglobin 30.8 PG (26-34); Mean Corpuscular Volume 93.2 fL (80-100); Platelet Count 448 X10^3/uL (150-400); Red Blood Cell Count 4.06 X10^6/uL (4.5-5.9); Red Cell Distribution Width 14.2 % (11.6-14.8)
[2022-02-26 13:42] LABS: Alanine Aminotransferase 31 IU/L (<50); Alkaline Phosphatase 83 U/L (38-126); Aspartate Aminotransferase 30 IU/L (17-59); BUN Creatinine Ratio 18.1 (6-22); Bilirubin Total 0.9 mg/dL (0.2-1.3); Blood Urea Nitrogen 23 mg/dL (9-20); Calcium 8.6 mg/dL (8.4-10.2); Carbon Dioxide 25 mmol/L (22-32); Chloride 101 mmol/L (98-107); Estimated Glomerular Filt Rate 55 mL/min (>60); Glucose 95 mg/dL (80-110); HEMOLYSIS < 15 (0-50); Potassium 4.5 mmol/L (3.4-5.1); Sodium 139 mmol/L (137-145)
[2022-02-26 15:25] LABS: TSH w/ Reflex to FT4 1.32 uIU/mL (0.47-4.68)
[2022-03-05 14:37] LABS: Chromogranin A, Serum 209.2 ng/mL (0.0-101.8)
== END ==
PROVIDERS: PCP Internal Medicine; Referring Provider Internal Medicine; Visit Provider Internal Medicine
DX: I48.0 Paroxysmal atrial fibrillation (principal); N18.32 Chronic kidney disease, stage 3b
CPT/HCPCS: 36415; 80053; 84443; 85027; 86316

== ENCOUNTER → 2022-03-27 16:32 | Outpatient (CLI) | payer OTHER, SELFPAY ==
--- NOTE | 2022-03-27 16:38 | DI.ECHO.S_ITS ---
Interpretation Summary The ejection fraction is estimated to be 55-60%. Diastolic parameters suggest probable normal left ventricular diastolic function and normal filling pressures. The right ventricular systolic function is normal. Pulmonary artery pressures cannot be estimated because of the lack of a measurable TR jet velocity. No significant valvular abnormlality. Procedure: A two-dimensional transthoracic echocardiogram with color flow and Doppler was performed. The patient was in sinus bradycardia with heart rates between 59-74 bpm during the exam. The patient had occasional PVCs during the exam. Left Ventricle: The left ventricle is normal in size and wall thickness. The ejection fraction is estimated to be 55-60%. There are no obvious focal wall motion abnormalities noted but poor endocardial definition reduces the sensitivity for the detection of such. Diastolic parameters suggest probable normal left ventricular diastolic function and normal filling pressures. Right Ventricle: The right ventricle is mildly dilated. The right ventricular systolic function is normal. Atria: The left atrial size is normal. Right atrial size is normal. There is no Doppler evidence for an interatrial shunt. Mitral Valve: The mitral valve is normal in structure and function. There is trace mitral regurgitation. Aortic Valve: The aortic valve is normal in structure and function. There is no aortic valve stenosis. There is trace aortic regurgitation. Tricuspid Valve: The tricuspid valve is normal in structure and function. There is a trace or physiologic amount of tricuspid regurgitation. Pulmonary artery pressures cannot be estimated because of the lack of a measurable TR jet velocity. Pulmonic Valve: The pulmonic valve leaflets are thin and pliable; valve motion is normal. There is a trace or physiologic amount of pulmonic regurgitation. Great Vessels: The ascending aorta is normal in size. The IVC is of normal diameter and collapses greater than 50% with a sniff. This suggests a low right atrial pressure of 3 mm Hg. Pericardium/ Pleura There is no pericardial effusion. There is no pleural effusion. MMode/2D Measurements & Calculations LVIDd: 3.8 cm LVOT diam: 2.1 cm LVIDs: 2.6 cm Ao root diam: 3.5 cm FS: 31.6 % asc Aorta Diam: 3.2 cm EPSS: 0.60 cm IVSd: 0.90 cm LVPWd: 0.80 cm LV cameron. diameter/BSA (cm/m^2): 2.0 LV sys. diameter/BSA (cm/m^2): 1.3 LA dimension: 2.9 cm RA long axis: 3.6 cm LA A2 area: 10.2 cm2 RA area: 11.5 cm2 LA A4 area: 15.8 cm2 RA vol: 31.1 ml LA length (vol): 3.4 cm RA : 16.0 ml/m2 LA vol: 40.0 ml IVC diam: 1.8 cm LA vol index: 20.6 ml/m2 RVD1 (basal): 3.9 cm LVLs ap4: 6.2 cm LVLd ap2: 8.0 cm TAPSE_phl: 2.6 cm LVLs ap2: 5.9 cm Doppler Measurements & Calculations Ao V2 max: 80.6 cm/sec LVOT Max Eric: 64.6 cm/sec Ao V2 mean: 60.0 cm/sec LV V1 max P.7 mmHg Ao max P.0 mmHg LV V1 VTI: 15.6 cm Ao mean P.0 mmHg ANY(I,D): 2.9 cm2 Ao V2 VTI: 18.5 cm ANY(V,D): 2.8 cm2 sev ratio: 0.84 ANY indexed to BSA (cm^2/m^2): 1.5 MV E max eric: 61.7 cm/sec TR max eric: 196.5 cm/sec MV A max eric: 73.7 cm/sec TR max P.5 mmHg MV E/A: 0.84 PA V2 max: 78.6 cm/sec Med Peak E' Eric: 7.8 cm/sec PA V2 mean: 57.3 cm/sec E/E' med: 7.9 PA mean P.0 mmHg Lat Peak E' Eric: 7.2 cm/sec E/E' lat: 8.6 E/e' average: 8.2 MV dec time: 0.24 sec MVA(VTI): 1.9 cm2 MV V2 mean: 46.2 cm/sec SV(LVOT): 54.0 ml MV mean P.0 mmHg MV V2 VTI: 28.0 cm AV VR_phl: 0.80 ANY(VTI)/BSA_phl: 1.5 Reading Physician:JOSÉ ANTONIO
== END ==
PROVIDERS: PCP Internal Medicine; Referring Provider Internal Medicine; Visit Provider Internal Medicine
DX: I48.0 Paroxysmal atrial fibrillation (principal)
CPT/HCPCS: 93306

== ENCOUNTER → 2022-05-02 09:29 | Outpatient (CLI) | payer OTHER, SELFPAY ==
[2022-05-02 12:15] LABS: HEMOLYSIS < 15 (0-50); Potassium 4.5 mmol/L (3.4-5.1)
== END ==
PROVIDERS: PCP Internal Medicine; Referring Provider Internal Medicine; Visit Provider Internal Medicine
DX: E87.5 Hyperkalemia (principal)
CPT/HCPCS: 36415; 84132

== ENCOUNTER → 2022-06-12 10:58 | Outpatient (CLI) | payer OTHER, SELFPAY ==
--- NOTE | 2022-06-12 10:59 | DI.MRI.S_ITS ---
PROCEDURE: MR LUMBAR SPINE WO CON INDICATIONS: spinal stenosis TECHNIQUE: Noncontrast sagittal T1 spin echo and T2 fast echo, sagittal STIR, and T2 fast spin echo through the lumbar spine. In cases with scoliosis, additional coronal T2 fast spin echo may be performed. COMPARISON: [facility], , L-SPINE WITHOUT CONTRAST, 02/01/2012, 9:12. FINDINGS: Image quality: Excellent. Alignment and Curvature: There is normal bony alignment. Bone Marrow: Marrow is of normal overall signal. No acute vertebral body compression fractures. Spinal Cord: Conus medullaris terminates at the top of L2 level. Visualized cord demonstrates normal signal and size. Paraspinous Soft Tissues: No paravertebral masses. T12-L1: Facet hypertrophy. No canal stenosis or foraminal stenosis. L1-L2: Facet hypertrophy. No canal stenosis or foraminal stenosis. L2-L3: Disc bulge and prominent facet and ligament hypertrophy with high-grade central canal stenosis. Moderate right foraminal narrowing with mild flattening deformity on the exiting right L2 nerve root. Mild to moderate left foraminal narrowing. L3-L4: Disc bulge. Facet and ligament hypertrophy. Moderate canal stenosis. Moderate right foraminal narrowing with mild flattening deformity on the exiting right L3 nerve root. Moderate to severe left foraminal narrowing with a degree of left foraminal L3 nerve root impingement. L4-L5: Disc bulge. Facet hypertrophy. Iqzw-zv-zgehkmra canal stenosis. Severe right foraminal narrowing and moderate to severe left foraminal narrowing with bilateral foraminal L4 nerve root impingement. L5-S1: Disc bulge. Facet hypertrophy. No canal stenosis. Moderate right foraminal narrowing. Marked left foraminal narrowing with significant left foraminal L5 nerve root impingement. IMPRESSION: 1. There is underlying multilevel prominent facet and ligament hypertrophy. 2. Canal stenosis is high-grade at L2-L3, moderate at L3-L4, and mild to moderate at L4-L5. 3. Significant multilevel foraminal narrowing as described above. Findings include moderate to severe left foraminal narrowing at L3-L4, severe right foraminal narrowing and moderate to severe left foraminal narrowing at L4-L5, and marked left foraminal narrowing at L5-S1. Dictated by: Star Culp M.D. on 06/12/2022 at 14:43 Approved by: Star Culp M.D. on 06/12/2022 at 14:55
== END ==
PROVIDERS: PCP Internal Medicine; Referring Provider Internal Medicine; Visit Provider Internal Medicine
DX: M48.062 Spinal stenosis, lumbar region with neurogenic claudication (principal); M48.07 Spinal stenosis, lumbosacral region; M54.50 Low back pain, unspecified; G89.29 Other chronic pain
CPT/HCPCS: 72148

== ENCOUNTER 2022-07-23 13:43 | Outpatient (CLI) | payer OTHER, SELFPAY ==
[2022-07-23] VITALS (9 sets, daily range): BP systolic 124–183; BP diastolic 61–91; PULSE 52–72; RESP 14–19; O2SAT 96–100
--- NOTE | 2022-07-23 13:44 | DI.RAD.S_ITS ---
PROCEDURE: PAIN L INTERLAMINAR/CAUDAL INJ INDICATIONS: SPONDYLOSIS COMPARISON: [facility], MR, MR LUMBAR SPINE WO CON, 06/12/2022, 11:31. [facility], CR, XR LUMBAR SPINE 6V W BENDING, 05/28/2022, 11:42. FINDINGS: Fluoroscopic spot filming was performed to verify placement of spinal needles at the right L3-L4 level(s), as labeled on the films. Appropriate location(s) of the needle tip(s) was confirmed by injection of iodinated contrast. IMPRESSION: Fluoroscopy for pain management. Dictated by: William Puga M.D. on 07/24/2022 at 7:43 Approved by: William Puga M.D. on 07/24/2022 at 7:43
[2022-07-23] MEDS: MIDAZOLAM 2 MG/2 ML VIAL IV (14:57)
[2022-07-23] MEDS: BETAMETHASONE 30 MG/5 ML MDV 6 MG INJ (15:01)
[2022-07-23] MEDS: DEXAMETHASONE 10 MG/ML VIAL 20 MG INJ (15:01)
[2022-07-23] MEDS: IOPAMIDOL 15 ML VIAL 3 ML INJ (15:02)
[2022-07-23] MEDS: BUPIVACAINE 0.25% (PF) VIAL 2 ML INJ (15:02)
--- NOTE | 2022-07-23 15:13 | P.PCN_ITS ---
Date/Time/Diagnoses Date of procedure: 07/23/22 Time of procedure: 15:13 Pre-procedure diagnosis: 1. HNP WITH RADICULAR FEATURES, 2. MULTILEVEL CENTRAL STENOSIS, Post-procedure diagnosis: same Procedure Notes Procedure: 1. FLUOROSCOPICALLY GUIDED CONTRAST CONTROLLED INTERLAMINAR EPIDURAL STEROID INJECTION - L3/4 Indications: Gilberto is referred by Dr. Pike for treatment of Bilateral Foraminal Stenosis L>R LE symptoms. Physician: Cas Regalado Total Fluoroscopy time (seconds): 10 Total sedation minutes: 12 Complications: none Procedure in detail & Post-procedure care: FINDINGS Multilevel Central Spinal Stenosis with Nerve Root Compression DESCRIPTION OF PROCEDURE Fluoroscopically guided, contrast-controlled L3/4 translaminar epidural steroid injection. Following review of allergy and review of potential side effects and complications, including, but not necessarily limited to, infection, allergic reaction, local tissue breakdown, temporary as well as permanent nerve injury, paralysis, stroke and possible , the patient indicated that the patient understood and agreed to proceed. An informed consent document was signed by the patient, witnessed by a nurse, and placed in the patient's chart. Additionally, other treatment options including modalities, medications, and physical therapy were reviewed with the patient. After review of previous anaesthesic history and IV conscious sedation the patient was deemed safe to proceed with today?s procedure with IV conscious sedation as ASA class II designation. Safety time-out was performed to confirm patient ID, procedure to be performed and site of procedure. IV sedation was accomplished with a combination of 2mg of Versed was administered by the RN after DO order, titrated to patient comfort during the course of the procedure while the patient remained responsive to all verbal commands. In the prone position, following sterile prep and drape of the lumbar region, the L3/4 translaminar space was identified fluoroscopically. The skin was anesthetized via a 25-gauge, 1.5-inch needle with 1% lidocaine solution. At this point, a 22-gauge short bevel spinal needle was atraumatically introduced and advanced under fluoroscopic guidance into the region of the L3/4 translaminar space. Depth was confirmed on lateral view. Radiological data, including multiple fluoroscopic views of the lumbar spine, reveal a spinal needle at the L3/4 translaminar space. Lateral views then show placement of the needle in the epidural space. Subsequent views show contrast material flowing superiorly and inferiorly in the epidural space. No vascular or intrathecal uptake is observed. At this point, using loss of resistance technique with saline and air, the epidural space was entered. This was confirmed following negative aspiration with injection of approximately 1.5 cc of Isovue 200, showing excellent epidural flow without vascular or intrathecal uptake. At this point, 1cc of 1% lidocaine solution combined with 3cc or 20mg of dexamethasone and 6mg of betamethasone was injected without incident. The patient tolerated the procedure well without signs or symptoms of complications prior to transfer to the recovery area continued monitoring without incident. The patient was then transferred to the recovery area where they were observed for an appropriate period of time after the injection. The patient reported a VAS score of 6 prior to the procedure and a post- procedure VAS of 0. POST OP INSTRUCTIONS The patient was provided a Pain Log to continue to record their response to the target-specific procedure prior to follow-up visit with their referring physician. Additionally, specific post-injection care instructions and a contact number to our office were provided if concerns arise regarding possible complications associated with the procedure are suspected.
== END 2022-07-23 16:30 | disposition home or self-care (01) ==
LOC: RAD 13:44
PROVIDERS: PCP Internal Medicine; Referring Provider Physical Medicine & Rehabilitation; Visit Provider Physical Medicine & Rehabilitation
DX: M48.062 Spinal stenosis, lumbar region with neurogenic claudication (principal); M48.061 Spinal stenosis, lumbar region without neurogenic claudication
CPT/HCPCS: 62323; 99152; J0702; J1100; J2250; J3490

== ENCOUNTER → 2023-04-15 10:59 | Outpatient (CLI) | payer OTHER, SELFPAY ==
--- NOTE | 2023-04-15 | DI.CT.S_ITS ---
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 Coronal and sagittal reformats were performed. For radiation dose reduction, the following was used: automated exposure control, adjustment of mA and/or kV according to patient size. COMPARISON: [facility], CT, CT ABDOMEN WWO PELVIS W, 07/18/2020, 12:58. [facility], CT, CT CHEST ABD PEL W CON, 01/09/2022, 12:04. [facility], CT, CT ABDOMEN WWO PELVIS W, 03/13/2021, 14:57. FINDINGS: Image quality: Diagnostic. Lower Chest: No significant findings. ABDOMEN: Liver: No definitive mass. There is pneumobilia. Gallbladder: Surgically absent Biliary ducts: No biliary dilation. Pancreas: No ductal dilation. Spleen: Size is within normal limits. Adrenal Glands: No adrenal nodules. Kidneys: No stones or hydronephrosis. Stomach and Bowel: Normal caliber. There is a 2.2 cm filling defect involving the anterior wall of the gastric antrum, suspicious for mass (series 2, image 26). Question segmental small bowel wall thickening in jejunum and ileum. Peritoneum: There is a mesenteric mass with partial calcification measuring 2.9 x 3.6 cm, increased in size since the last exam dated 01/09/2022 (previously 2.4 x 3.2 cm). Extensive sigmoid diverticulosis. No acute diverticulitis. No abnormal intraperitoneal fluid. No free air. Ventral Wall: No hernia. Abdominal Nodes: No enlarged retroperitoneal or mesenteric lymph nodes. Vessels: Aorta and inferior vena cava are normal in size. PELVIS: Pelvic Organs: Unremarkable. Pelvic Nodes: Unremarkable. Bladder: Normal wall thickness. No stones. Miscellaneous: No inguinal hernias are seen. Bones: There is a lucency in the superior endplate of L3, probably a prominent Schmorl's nodes. This finding, however, is new. A lytic metastasis is felt less likely but not entirely excluded. Consider MRI of the lumbar spine for further evaluation. Levoscoliosis. Moderate to severe spondylitic changes are noted. Osteopenia. IMPRESSION: 1. Increase in size of mesenteric mass. If clinically indicated, Cu-64 Dodatate PET-CT may be helpful. 2. There is a 2.2 cm filling defect involving the anterior wall of the gastric antrum, suspicious for mass. A differential diagnosis is artifact. This can be evaluated by Cu-64 Dodatate PET-CT. 3. The examination is suboptimal in the absence of intravenous contrast to evaluate liver metastasis. 4. Question segmental bowel wall thickening in small intestine, which may be secondary to segmental enteritis or artifact from peristalsis. 5. Extensive sigmoid diverticulosis. No acute diverticulitis. 6. A lucent lesion in the superior endplate of L3, probably a Schmorl's node related to degenerative disc disease. The finding, however, is new since the last exam. A lytic metastatic disease is not entirely excluded. Consider MRI with and without contrast for further evaluation. Dictated by: William Puga M.D. on 04/15/2023 at 17:10 Approved by: William Puga M.D. on 04/16/2023 at 9:38
== END ==
PROVIDERS: PCP Internal Medicine; Referring Provider Internal Medicine Hematology & Oncology; Visit Provider Internal Medicine Hematology & Oncology
DX: C7A.021 Malignant carcinoid tumor of the cecum (principal); K83.8 Other specified diseases of biliary tract; K57.30 Diverticulosis of large intestine without perforation or abscess without bleeding; M89.9 Disorder of bone, unspecified; Z90.49 Acquired absence of other specified parts of digestive tract
CPT/HCPCS: 74176

== ENCOUNTER → 2024-05-24 14:07 | Outpatient (CLI) | payer MEDICARE, OTHER, SELFPAY ==
[2024-05-24 19:16] LABS: Influenza A - CEPHEID Flu A NEGATIVE (NEGATIVE); Influenza B - CEPHEID Flu B NEGATIVE (NEGATIVE); Respiratory Syncytial Virus Negative (Negative)
[2024-05-24 19:24] LABS: COVID-19 CEPHEID 4-PLEX PCR Negative (Negative)
== END ==
PROVIDERS: PCP Internal Medicine; Visit Provider Internal Medicine
DX: J06.9 Acute upper respiratory infection, unspecified (principal)
CPT/HCPCS: 0241U

== ENCOUNTER → 2024-05-24 14:15 | Outpatient (CLI) | payer MEDICARE, OTHER, SELFPAY ==
--- NOTE | 2024-05-24 14:18 | DI.RAD.S_ITS ---
PROCEDURE: XR CHEST 2V INDICATIONS: cough TECHNIQUE: 2 views of the chest were acquired. COMPARISON: [facility], CR, XR CHEST 1V, 02/18/2022, 17:48. FINDINGS: Surgical changes and devices: None. Lungs and pleura: Lungs are clear. No pleural effusions or pneumothorax. Mediastinum: Mediastinal contours are normal. Heart size is normal. Bones and chest wall: No suspicious bony abnormalities. Soft tissues appear unremarkable. IMPRESSION: No acute cardiopulmonary abnormalities or focal consolidation. Dictated by: Brian Tucker M.D. on 05/24/2024 at 16:59 Approved by: Brian Tucker M.D. on 05/24/2024 at 16:59
== END ==
PROVIDERS: PCP Internal Medicine; Referring Provider Internal Medicine; Visit Provider Internal Medicine
DX: J20.9 Acute bronchitis, unspecified (principal); J01.90 Acute sinusitis, unspecified; B96.89 Other specified bacterial agents as the cause of diseases classified elsewhere; J06.9 Acute upper respiratory infection, unspecified
CPT/HCPCS: 0241U; 71046

== ENCOUNTER → 2024-08-08 14:15 | Outpatient (CLI) | payer MEDICARE, OTHER, SELFPAY ==
[2024-08-08 16:31] LABS: TSH w/ Reflex to FT4 3.01 uIU/mL (0.47-4.68)
== END ==
PROVIDERS: PCP Internal Medicine; Referring Provider Internal Medicine; Visit Provider Internal Medicine
DX: E07.9 Disorder of thyroid, unspecified (principal)
CPT/HCPCS: 36415; 84443